=== PATIENT | female | born 1945 | race Caucasian/White ===

== ENCOUNTER 2017-11-10 00:15 | Inpatient (IN) ==
[2017-11-10] MEDS ORDERED: D5% in Water 1,000 ML IVC PRN (02:50)
[2017-11-10] MEDS ORDERED: Dextrose Gel 15 GM PO PRN ×2 (02:50)
[2017-11-10] MEDS ORDERED: *HR* Dextrose 50 % in Water (Syg) 50 ML SYRINGE IVP PRN (02:50)
[2017-11-10] MEDS ORDERED: Acetaminophen 325 MG TABLET PO PRN (02:51)
[2017-11-10] MEDS ORDERED: Naloxone 0.4 MG/ML INJ IVP PRN (02:51)
[2017-11-10] MEDS ORDERED: *HR* Morphine 2 MG/ML SYRINGE IVP PRN (02:51)
[2017-11-10] MEDS ORDERED: Insulin LISPRO 300 UNITS/3 ML VIAL SQ SCH (03:00)
--- NOTE | 2017-11-10 03:03 | Internal Med History&Physical ---
Date of Encounter: 11/10/17 Time of Encounter: 03:01 Assessment and Plan (1) Abdominal pain Current visit: Yes Status: Acute Secondary to perhaps gallbladder with pneumobilia but no white cell count of fever. She consulted IV Zosyn started IV fluids started. Qualifiers: Abdominal location: right upper quadrant Qualified Code(s): R10.11 - Right upper quadrant pain (2) Cholelithiasis Current visit: Yes Status: Acute Gen. surgery consulted Qualifiers: Cholecystitis presence: without cholecystitis Biliary obstruction: without biliary obstruction Qualified Code(s): K80.20 - Calculus of gallbladder without cholecystitis without obstruction (3) Pneumobilia Current visit: Yes Status: Acute Findings noted surgical consultation requested per request of general surgery IV Zosyn as started (4) Diabetes 1.5, managed as type 2 Current visit: Yes Status: Acute Accu-Chek every 6 sliding scale coverage Internal Medicine - H&P: HPI Chief complaint: abdominal pain Admitted From: Home Plans for Post Hospital Care: Home History of present illness: Ms. Olivo is a 72 year old female past medical history significant for diabetes hypertension dyslipidemia presented with right according abdominal pain is started after eating supper. A CT abdomen done in ER showed cholelithiasis with Pneumobilia. There is no fever O White cell count. Surgery was consulted who has requested to admit the patient to hospitalist service and start IV Zosyn. Pain is localized in general but occasionally radiates in a bandlike fashion to her back. No nausea vomiting no dysuria urgency frequency hematuria or hematochezia hematemesis melena chest pain and dyspnea palpitation. Past Med Surg Social Fam HX - Past Medical History Medical history: cancer, diabetes, hyperlipidemia, hypertension Psychiatric history: no psych history - Social History Smoking Status: Current every day smoker Packs per day: 0.5 Smokeless Tobacco Status: No Alcohol use: none Drug use: none - Family History Sister Living Status: Still Living Hx Family Cancer: Yes (breast ca) Mother Living Status: Hx Family Endocrine Disorder: Yes Internal Medicine - H&P: Meds Glimepiride 11/09/17 [History] Insulin ASPART 11/09/17 [History] Janumet Xr 100-1,000 mg Tablet 11/09/17 [History] Lisinopril 11/09/17 [History] Simvastatin 11/09/17 [History] 3 Allergy/AdvReac Type Severity Reaction Status Date / Time No Known Allergies Allergy Verified 07/25/15 11:15 All Systems PM: A 10-system review of systems was performed and is negative for pertinent findings except as documented above in the HPI. - Constitutional Constitutional: no chills, no fever(s), no night sweats - EENT Eyes: no change in vision, no discharge, no pain, no photophobia Ears: no ear discharge, no ear pain, no tinnitus Nose, mouth and throat: no dysphagia, no nasal discharge, no neck pain, no sore throat - Cardiovascular Cardiovascular ROS IM: no chest pain, no diaphoresis, no dyspnea, no lightheadedness, no palpitations, no syncope - Respiratory Respiratory: no cough, no dyspnea, no wheezing, no excessive phlegm production - Gastrointestinal Gastrointestinal: abdominal pain, no diarrhea, no hematemesis, no hematochezia, no melena, no nausea, no vomiting - Genitourinary Genitourinary: no change in urinary stream, no dysuria, no flank pain, no hematuria - Musculoskeletal Musculoskeletal ROS IM: no numbness, no tingling - Integumentary Integumentary IM: no rash, no unusual bruising - Neurological Neurological ROS: no confusion, no convulsions, no focal weakness, no numbness, no tingling, no tremor(s) - Hematologic/Lymphatic Hematologic/Lymphatic: no easy bruising - Head Head exam: Present: atraumatic, normocephalic - Eye Eye exam: Present: PERRL, conjuntiva pink, sclera anicteric Pupils: Present: PERRL - Neck Neck exam general surgery: Present: supple, trachea midline. Absent: lymphadenopathy - Respiratory Respiratory exam: Present: CTAB. Absent: accessory muscle use, rales, rhonchi, wheezes - Cardiovascular Cardiovascular exam: Present: RRR, +S1, +S2. Absent: diastolic murmur, gallop, rubs, systolic murmur - GI/Abdominal GI/Abdominal exam: Present: normal bowel sounds, soft, tenderness, no peritoneal signs. Absent: distended - Extremities Exam Extremities exam: Present: warm, radial pulses palpable and symmetrical. Absent : calf tenderness, cyanotic, pedal edema - Neurological Exam Neurological exam: Present: CN II-XII intact, oriented X3, no focal deficits. Absent: pronater drift, facial droop, speech deficit - Skin Skin exam: Present: dry, intact
[2017-11-10] MEDS: Insulin LISPRO 300 UNITS/3 ML VIAL SQ SCH ×4 (03:16→16:58)
[2017-11-10] MEDS: 0.9 % Sodium Chloride 1,000 ML IVC SCH ×2 (03:17→13:45)
[2017-11-10] MEDS: Ondansetron 4 MG/2 ML VIAL IVP SCH ×5 (03:18→20:00)
[2017-11-10 05:36] LABS: Basophils % 0.3 %; Eosinophils # 0.1 K/mcL (0.0-0.6); Eosinophils % 0.5 %; Hemoglobin 12.9 g/dL (11.5-15.4); Immature Granulocytes % 0.6 % (0-4); Lymphocytes # 1.7 K/mcL (0.6-4.6); Lymphocytes % 14.5 %; Mean Corpuscular HGB Conc 33.1 g/dL (31.6-35.5); Mean Corpuscular Hemoglobin 30.9 pg (28.0-33.3); Mean Corpuscular Volume 93.3 fL (83.0-100.0); Mean Platelet Volume 9.9 fL (9.4-12.4); Monocytes # 1.1 K/mcL (0.0-1.3); Monocytes % 9.6 %; Neutrophils # 8.6 K/mcL (1.6-8.9); Platelet Count 150 K/mcL (140-400); Red Blood Count 4.18 M/mcL (3.82-4.97); Red Cell Distribution Width 13.8 % (11.5-14.5); Segmented Neutrophils % 74.5 %
[2017-11-10 05:55] LABS: Alanine Aminotransferase 37 Units/L (0-55); Albumin 3.3 g/dL (3.5-5.0); Albumin/Globulin Ratio 0.9 (1.1-2.2); Alkaline Phosphatase 60 Units/L (38-126); Aspartate Amino Transferase 47 Units/L (5-34); BUN/Creatinine Ratio 33 (6-26); Bilirubin,Total 0.9 mg/dL (0.2-1.2); Blood Urea Nitrogen 27 mg/dL (7-20); Calcium 9.4 mg/dL (8.6-10.8); Carbon Dioxide 20 mEq/L (19-29); Chloride 104 mEq/L (98-109); Globulin 3.6 g/dL (2.4-3.5); Glucose 169 mg/dL (70-99); Osmolality,Calculated 291 (280-300); Potassium 4.1 mEq/L (3.5-4.5); Sodium 136 mEq/L (136-145); Total Protein 6.9 g/dL (6.0-8.3); eGFR For African Americans > 60 (> 60); eGFR For Non-African Americans > 60 (> 60)
[2017-11-10] MEDS: Piperacillin/Tazobactam 3.375 GM/200 ML BAG IVPB SCH ×2 (08:15→16:59)
--- NOTE | 2017-11-10 08:52 | General Surgery Consult Note ---
<Jesus Colin - Last Filed: 11/10/17 09:15> Date of Encounter: 11/10/17 Time of Encounter: 08:43 Assessment and Plan (1) Abdominal pain Current Visit: Yes Status: Acute - Most likely secondary to symptomatic cholelithiasis -Does not appear to be acute cholecystitis given afebrile, WBC 11.5, no reported nausea or vomiting - AST mildly elevated at 47, otherwise unremarkable labs - Abdominal CT in emergency department showed evidence of cholelithiasis with pneumobilia in no apparent cholecystitis -We will plan on laparoscopic cholecystectomy tomorrow - Clear liquid diet today, nothing by mouth at midnight - Coagulation studies pending - Agree with IV Zosyn and IV fluids Qualifiers: Abdominal location: right upper quadrant Qualified Code(s): R10.11 - Right upper quadrant pain (2) Cholelithiasis Current Visit: Yes Status: Acute As above for abdominal pain. Plan for laparoscopic cholecystectomy tomorrow Qualifiers: Cholecystitis presence: without cholecystitis Biliary obstruction: without biliary obstruction Qualified Code(s): K80.20 - Calculus of gallbladder without cholecystitis without obstruction (3) HTN (hypertension) Current Visit: Yes Status: Acute Well-controlled, further management per primary team Qualifiers: Hypertension type: essential hypertension Qualified Code(s): I10 - Essential (primary) hypertension (4) HLD (hyperlipidemia) Current Visit: Yes Status: Acute Qualifiers: Hyperlipidemia type: unspecified Qualified Code(s): E78.5 - Hyperlipidemia , unspecified (5) DVT prophylaxis Current Visit: Yes Status: Acute SCDs History of Present Illness Consult date: 11/10/17 Reason for consult: gallstones Requesting physician: Randy Wyatt History of present illness: Miss Olivo is a 72-year-old female with a past medical history of CAD, HLD, type 2 diabetes who presents to emergency department with a complaint of right upper quadrant abdominal pain since 6 PM last evening. She states that during the sudden onset sharp pain she was crocheting and had finished her evening meal approximately 1 hour previous. She had pork chops with cream of mushroom soup over top. She has had intermittent pain for the past couple of years however the symptoms did not perla and were significantly worse than previous. She has not noticed any exacerbating or relieving symptoms and does not associate onset of symptoms with any particular event. She has seen her primary care physician regarding this and was started on a antireflux medication but states that this did not help her pain last night. She denies any symptoms of nausea, vomiting and notes that her last bowel movement was last evening which was a little loose with some fecal incontinence however there is no evidence of blood in and the color was normal appearance. Abdominal surgeries include hysterectomy. During time of interview, patient is no longer experiencing symptoms of abdominal pain. Past Med Surg Social Fam HX - Past Medical History Medical history: cancer, diabetes, hyperlipidemia, hypertension Psychiatric history: no psych history - Social History Smoking Status: Current every day smoker Packs per day: 0.5 Smokeless Tobacco Status: No Alcohol use: none Drug use: none - Family History Sister Living Status: Still Living Hx Family Cancer: Yes (breast ca) Mother Living Status: Hx Family Endocrine Disorder: Yes Medications and Allergies Glimepiride [Amaryl] 4 mg PO BID 11/10/17 [History] Insulin DETEMIR [Levemir Flextouch] 22 unit SQ QPM 11/10/17 [History] Lisinopril-HCTZ 20-12.5 [Prinzide 20-12.5] 1 tab PO DAILY 11/10/17 [History] Simvastatin [Zocor] 40 mg PO HS 11/10/17 [History] Sitagliptin Phos/Metformin HCl [Janumet 50-1,000 mg Tablet] 1 tab PO BID [History] 3 Allergy/AdvReac Type Severity Reaction Status Date / Time No Known Allergies Allergy Verified 11/10/17 11:36 Review of Systems All systems PM: A 10-system review of systems was performed and is negative for pertinent findings except as documented above in the HPI. - Constitutional no anorexia, no chills, no fever(s) - Cardiovascular no chest pain, no dyspnea - Respiratory no dyspnea - Gastrointestinal as per HPI, abdominal pain, change in stool character, fecal incontinence, loose stools, no change in bowel habits, no constipation, no diarrhea, no dyspepsia, no heartburn, no hematemesis, no hematochezia, no melena, no nausea, no vomiting General Surgery Exam Initial Vital Signs Temp Pulse Resp BP Pulse Ox 97.9 F 85 14 109/70 94 11/10/17 03:30 11/10/17 03:30 11/10/17 03:30 11/10/17 03:30 11/10/17 03:30 - General physical appearance well developed, well nourished, no distress, no pain - Respiratory normal expansion, normal respiratory effort, clear to auscultation - Cardiovascular Cardiovascular exam: Present: RRR, no murmurs/rubs/gallops - Abdomen Abdomen general surgery: Present: bowel sounds present, soft, tender. Absent: tympanic, distended, organomegaly, masses, rebound Abdominal Tenderness: Present: epigastic, RUQ Exam Initial Vital Signs Temp Pulse Resp BP Pulse Ox 97.9 F 85 14 109/70 94 11/10/17 03:30 11/10/17 03:30 11/10/17 03:30 11/10/17 03:30 11/10/17 03:30 Results - Labs 11/10/17 04:20 11/10/17 04:20 Abnormal lab results WBC 11.5 K/mcL (4.3-11.1) H 11/10/17 04:20 BUN 27 mg/dL (7-20) H 11/10/17 04:20 BUN/Creatinine Ratio 33 (6-26) H 11/10/17 04:20 Glucose 169 mg/dL (70-99) H 11/10/17 04:20 POC Glucose 122 (58-89) H 11/10/17 08:04 AST 47 Units/L (5-34) H 11/10/17 04:20 Albumin 3.3 g/dL (3.5-5.0) L 11/10/17 04:20 Globulin 3.6 g/dL (2.4-3.5) H 11/10/17 04:20 Albumin/Globulin Ratio 0.9 (1.1-2.2) L 11/10/17 04:20 Diabetes panel 11/10/17 Range/Units 04:20 Sodium 136 (136-145) mEq/L Potassium 4.1 (3.5-4.5) mEq/L Chloride 104 (98-109) mEq/L Carbon Dioxide 20 (19-29) mEq/L BUN 27 H (7-20) mg/dL Creatinine 0.81 (0.57-1.11) mg/dL Glucose 169 H (70-99) mg/dL Calcium 9.4 (8.6-10.8) mg/dL AST 47 H (5-34) Units/L ALT 37 (0-55) Units/L Alkaline Phosphatase 60 (38-126) Units/L Albumin 3.3 L (3.5-5.0) g/dL Calcium panel 11/10/17 Range/Units 04:20 Calcium 9.4 (8.6-10.8) mg/dL Albumin 3.3 L (3.5-5.0) g/dL Pituitary panel 11/10/17 Range/Units 04:20 Sodium 136 (136-145) mEq/L Potassium 4.1 (3.5-4.5) mEq/L Chloride 104 (98-109) mEq/L Carbon Dioxide 20 (19-29) mEq/L BUN 27 H (7-20) mg/dL Creatinine 0.81 (0.57-1.11) mg/dL Glucose 169 H (70-99) mg/dL Calcium 9.4 (8.6-10.8) mg/dL Adrenal panel 11/10/17 Range/Units 04:20 Sodium 136 (136-145) mEq/L Potassium 4.1 (3.5-4.5) mEq/L Chloride 104 (98-109) mEq/L Carbon Dioxide 20 (19-29) mEq/L BUN 27 H (7-20) mg/dL Creatinine 0.81 (0.57-1.11) mg/dL Glucose 169 H (70-99) mg/dL Calcium 9.4 (8.6-10.8) mg/dL Total Bilirubin 0.9 D (0.2-1.2) mg/dL AST 47 H (5-34) Units/L ALT 37 (0-55) Units/L Alkaline Phosphatase 60 (38-126) Units/L Albumin 3.3 L (3.5-5.0) g/dL All other labs normal. Consult Discharge Plan - Plan Referrals: Ry Jay MD [Primary Care Provider] - <Tien Carmona - Last Filed: 11/12/17 08:02> Date of Encounter: 11/10/17 Review of Systems All systems PM: A 10-system review of systems was performed and is negative for pertinent findings except as documented above in the HPI. General Surgery Exam Initial Vital Signs Temp Pulse Resp BP Pulse Ox 97.9 F 85 14 109/70 94 11/10/17 03:30 11/10/17 03:30 11/10/17 03:30 11/10/17 03:30 11/10/17 03:30 Exam Initial Vital Signs Temp Pulse Resp BP Pulse Ox 97.9 F 85 14 109/70 94 11/10/17 03:30 11/10/17 03:30 11/10/17 03:30 11/10/17 03:30 11/10/17 03:30 Results - Labs 11/12/17 03:40 11/12/17 03:40 Abnormal lab results WBC 11.6 K/mcL (4.3-11.1) H D 11/12/17 03:40 RBC 3.66 M/mcL (3.82-4.97) L 11/12/17 03:40 Hgb 11.4 g/dL (11.5-15.4) L 11/12/17 03:40 Hct 33.7 % (35.3-44.9) L 11/12/17 03:40 Plt Count 124 K/mcL (140-400) L 11/12/17 03:40 MPV 9.3 fL (9.4-12.4) L 11/12/17 03:40 Neutrophils # 9.3 K/mcL (1.6-8.9) H 11/12/17 03:40 Glucose 195 mg/dL (70-99) H 11/12/17 03:40 POC Glucose 194 (58-89) H 11/12/17 07:37 Calcium 8.4 mg/dL (8.6-10.8) L 11/12/17 03:40 AST 36 Units/L (5-34) H 11/12/17 03:40 Albumin 2.8 g/dL (3.5-5.0) L 11/12/17 03:40 Albumin/Globulin Ratio 0.8 (1.1-2.2) L 11/12/17 03:40 Diabetes panel 11/12/17 Range/Units 03:40 Sodium 139 (136-145) mEq/L Potassium 3.9 (3.5-4.5) mEq/L Chloride 106 (98-109) mEq/L Carbon Dioxide 22 (19-29) mEq/L BUN 16 (7-20) mg/dL Creatinine 0.82 (0.57-1.11) mg/dL Glucose 195 H (70-99) mg/dL Calcium 8.4 L (8.6-10.8) mg/dL AST 36 H (5-34) Units/L ALT 36 (0-55) Units/L Alkaline Phosphatase 42 (38-126) Units/L Albumin 2.8 L (3.5-5.0) g/dL Calcium panel 11/12/17 Range/Units 03:40 Calcium 8.4 L (8.6-10.8) mg/dL Albumin 2.8 L (3.5-5.0) g/dL Pituitary panel 11/12/17 Range/Units 03:40 Sodium 139 (136-145) mEq/L Potassium 3.9 (3.5-4.5) mEq/L Chloride 106 (98-109) mEq/L Carbon Dioxide 22 (19-29) mEq/L BUN 16 (7-20) mg/dL Creatinine 0.82 (0.57-1.11) mg/dL Glucose 195 H (70-99) mg/dL Calcium 8.4 L (8.6-10.8) mg/dL Adrenal panel 11/12/17 Range/Units 03:40 Sodium 139 (136-145) mEq/L Potassium 3.9 (3.5-4.5) mEq/L Chloride 106 (98-109) mEq/L Carbon Dioxide 22 (19-29) mEq/L BUN 16 (7-20) mg/dL Creatinine 0.82 (0.57-1.11) mg/dL Glucose 195 H (70-99) mg/dL Calcium 8.4 L (8.6-10.8) mg/dL Total Bilirubin 0.9 (0.2-1.2) mg/dL AST 36 H (5-34) Units/L ALT 36 (0-55) Units/L Alkaline Phosphatase 42 (38-126) Units/L Albumin 2.8 L (3.5-5.0) g/dL All other labs normal. - Attending Attestation I examined this patient and my medical decision-making was reviewed with the Resident Physician. I agree with the documented findings, disposition and treatment plan as described except to the extent set forth below. Review the above assessment and evaluation with him resident as mentioned above. Noted history of some epigastric right upper quadrant pain but currently patient has no pain. No tenderness to palpation on current exam. Noted mild leukocytosis but CT scan shows air in the gallbladder and pneumobilia. Agree with IV antibiotics and IV fluids. After this inflammation had a chance to decrease will consider plan for a laparoscopic cholecystectomy during this admission.
[2017-11-10 10:02] LABS: INR 1.1; Prothrombin Time 11.3 Seconds (9.4-12.1)
[2017-11-10 10:05] LABS: Activated Partial Thrombo Time 27.5 Seconds (26.0-36.0)
--- NOTE | 2017-11-10 15:11 | Internal Med Progress Note ---
Date of Encounter: 11/10/17 Time of Encounter: 09:00 - Assessment and plan (1) Abdominal pain Current Visit: Yes Status: Acute Assessment and plan: Probably due to symptomatic cholelithiasis. Surgical consult on case. Plan for surgery tomorrow Qualifiers: Abdominal location: right upper quadrant Qualified Code(s): R10.11 - Right upper quadrant pain (2) Cholelithiasis Current Visit: Yes Status: Acute Assessment and plan: Management as above. Continue Zosyn and IV fluid. Qualifiers: Cholecystitis presence: without cholecystitis Biliary obstruction: without biliary obstruction Qualified Code(s): K80.20 - Calculus of gallbladder without cholecystitis without obstruction (3) Pneumobilia Current Visit: Yes Status: Acute Assessment and plan: Suspected cholelithiasis versus cholecystitis. Continue Zosyn and IV fluid. Surgical consult on case and plan for surgery tomorrow (4) Diabetes 1.5, managed as type 2 Current Visit: Yes Status: Acute Assessment and plan: Place patient on sliding scale coverage (5) HTN (hypertension) Current Visit: Yes Status: Acute Assessment and plan: We will continue home medications Qualifiers: Hypertension type: essential hypertension Qualified Code(s): I10 - Essential (primary) hypertension (6) DVT prophylaxis Current Visit: Yes Status: Acute Assessment and plan: EPCD at this point, may start heparin after surgery. - Time Spent With Patient 25 - 35 minutes - Subjective Interval history: Patient was seen and examined. Still complaining abdominal pain. No fever. Denies nausea or vomiting. Denies diarrhea. Vitals are stable. Surgical consult appreciated, plan for surgery tomorrow. - Constitutional Vitals: Temp Pulse Resp BP Pulse Ox 98.6 F 88 16 131/81 92 11/10/17 14:54 11/10/17 14:54 11/10/17 14:54 11/10/17 14:54 11/10/17 14:54 General appearance: Present: A&O X 3, no acute distress, answers questions appropriately - Head Head exam: Present: atraumatic, normocephalic - Eye Eye exam: Present: PERRL, conjuntiva pink, sclera anicteric Pupils: Present: PERRL - Neck Neck exam general surgery: Present: supple, trachea midline. Absent: lymphadenopathy - Respiratory Respiratory exam: Present: CTAB. Absent: accessory muscle use, rales, rhonchi, wheezes - Cardiovascular Cardiovascular exam: Present: RRR, +S1, +S2. Absent: diastolic murmur, gallop, rubs, systolic murmur - GI/Abdominal GI/Abdominal exam: Present: normal bowel sounds, soft, tenderness (On RUQ, without rebound or guarding), no peritoneal signs. Absent: distended - Extremities Exam Extremities exam: Present: warm, radial pulses palpable and symmetrical. Absent : calf tenderness, cyanotic, pedal edema - Neurological Exam Neurological exam: Present: CN II-XII intact, oriented X3, no focal deficits. Absent: pronater drift, facial droop, speech deficit - Skin Skin exam: Present: dry, intact Internal Medicine: Result - Labs CBC & Chem 7: 11/10/17 04:20 11/10/17 04:20 Labs: Short CBC 11/10/17 Range/Units 04:20 WBC 11.5 H (4.3-11.1) K/mcL Hgb 12.9 (11.5-15.4) g/dL Hct 39.0 (35.3-44.9) % Plt Count 150 (140-400) K/mcL Neutrophils # 8.6 (1.6-8.9) K/mcL BMP 11/10/17 04:20 Sodium 136 Potassium 4.1 Chloride 104 Carbon Dioxide 20 BUN 27 H Creatinine 0.81 Glucose 169 H Calcium 9.4 Liver Function 11/10/17 Range/Units 04:20 Total Bilirubin 0.9 D (0.2-1.2) mg/dL AST 47 H (5-34) Units/L ALT 37 (0-55) Units/L Alkaline Phosphatase 60 (38-126) Units/L Albumin 3.3 L (3.5-5.0) g/dL - ABG Interpretation ABG results: PT/INR, D-dimer PT 11.3 Seconds (9.4-12.1) 11/10/17 09:23 Consult Discharge Plan - Plan Referrals: Ry Jay MD [Primary Care Provider] -
--- NOTE | 2017-11-10 20:44 | Anesthesia Evaluation PreOp ---
Date of Encounter: 11/10/17 Time of Encounter: 20:45 - Past History Planned Operation: Lap Gale Cardiac History: HTN (maintained on Lisinopril), Hyperlipidemia (maintained on Simvastatin) Pulmonary History: Smoker (<1ppd x 50+yrs) SENIOR SYSTEMS ARCHITECT History: Denies Any Significant HX Other Medical History: Diabetes Type II (maintained on Janumet, Glimepiride, Insulin), Other (Breast Ca s/p L-breast mastectomy, Skin Ca/BAsal Cell Ca - face , Hyster) Anesthesia History: Past Anesthesia Alcohol Use: none Drug use: none Medications and Allergies Glimepiride [Amaryl] 4 mg PO BID 11/10/17 [History] Insulin DETEMIR [Levemir Flextouch] 22 unit SQ QPM 11/10/17 [History] Lisinopril-HCTZ 20-12.5 [Prinzide 20-12.5] 1 tab PO DAILY 11/10/17 [History] Simvastatin [Zocor] 40 mg PO HS 11/10/17 [History] Sitagliptin Phos/Metformin HCl [Janumet 50-1,000 mg Tablet] 1 tab PO BID [History] 3 Allergy/AdvReac Type Severity Reaction Status Date / Time No Known Allergies Allergy Verified 11/10/17 11:36 - Meds/Allergy Pre-op Review Medications Reviewed: Yes Allergies Reviewed: Yes Beta Blockers on Current Med List: No Anesthesia Results - Labs 11/10/17 04:20 11/10/17 04:20 Laboratory Results - Imaging EKG: image reviewed Anesthesia Exam Vital Signs Temp Pulse Resp BP Pulse Ox 11/10/17 19:30 99.0 F 85 14 110/68 95 11/10/17 14:54 98.6 F 88 16 131/81 92 11/10/17 10:37 99.4 F 91 16 112/70 92 11/10/17 06:38 98.3 F 86 16 126/64 92 11/10/17 03:30 97.9 F 85 14 109/70 94 Intake and Output 11/10/17 11/10/17 11/10/17 07:59 15:59 23:59 Intake Total 0 / 0 2019 0 / 0 Output Total 0 / 0 850 / 850 450 / 450 Balance 0 / 0 1170 / 1170 -450 / -450 Intake: IV Fluids 1200 / 1200 0.9 % Sodium Chloride 1,000 ML 1000 / 1000 @ 100 mls/hr IVC .Q10H FRANCIA Rx#: [id number] Zosyn Premix 3.375 GM/200 ML 3. 200 / 200 375 gm In 200 ml @ 50 mls/hr IVPB Q8HR FRANCIA Rx#:[id number] Oral 0 / 0 820 / 820 0 / 0 Output: Urine 0 / 0 850 / 850 450 / 450 Other: Meal Clear # Bowel Movements 0 0 Weight 56.472 kg Blood Glucose* 164 87 168 Patient Weight 11/10/17 23:59 Weight 56.472 kg Weight: 125# - HEENT Pupil (Motor): Pupils equal, EOMI Mallampati: II Teeth: Edentulous, Poor dentition Oral Opening: Greater than 3 - SENIOR SYSTEMS ARCHITECT LOC: Oriented SENIOR SYSTEMS ARCHITECT Motor: Normal RUE, Normal LUE, Normal RLE, Normal LLE, Normal Face SENIOR SYSTEMS ARCHITECT Sensory: Normal: RUE, LUE, RLE, LLE, Face - Cardiac Rhythm: Regular Murmur: None - Pulmonary Breath Sounds: bilateral Clear Respiratory Effort: Symmetrical Anesthesia Assess/Plan ASA Score: 3 (DM, HTN, Chol, Smoker, Pneumobilia) Modified Freeman Scale for Level of Consciousness: Cooperative, oriented, and tranquil Anesthetic Plan: General Monitoring Plan: Standard Monitors Recovery Plan: PACU Anes Supervising Prov Stmt: Pt seen/evaluated, R&B Discussed, questions answered and consent obtained. Syd White MD
[2017-11-11] MEDS: Insulin LISPRO 300 UNITS/3 ML VIAL SQ SCH ×5 (00:05→23:31)
[2017-11-11] MEDS: Ondansetron 4 MG/2 ML VIAL IVP SCH ×5 (00:07→19:58)
[2017-11-11] MEDS ORDERED: Piperacillin/Tazobactam 3.375 GM/200 ML BAG IVPB SCH ×2 (02:00→10:00)
[2017-11-11 03:44] LABS: Basophils % 0.4 %; Eosinophils # 0.1 K/mcL (0.0-0.6); Eosinophils % 2.3 %; Hemoglobin 11.5 g/dL (11.5-15.4); Immature Granulocytes % 0.6 % (0-4); Lymphocytes # 1.8 K/mcL (0.6-4.6); Lymphocytes % 35.2 %; Mean Corpuscular HGB Conc 32.9 g/dL (31.6-35.5); Mean Corpuscular Hemoglobin 30.4 pg (28.0-33.3); Mean Corpuscular Volume 92.6 fL (83.0-100.0); Mean Platelet Volume 9.3 fL (9.4-12.4); Monocytes # 0.6 K/mcL (0.0-1.3); Monocytes % 12.5 %; Neutrophils # 2.5 K/mcL (1.6-8.9); Platelet Count 132 K/mcL (140-400); Red Blood Count 3.78 M/mcL (3.82-4.97); Red Cell Distribution Width 13.9 % (11.5-14.5)
[2017-11-11 03:55] LABS: BUN/Creatinine Ratio 18 (6-26); Calcium 8.6 mg/dL (8.6-10.8); Carbon Dioxide 25 mEq/L (19-29); Chloride 110 mEq/L (98-109); Glucose 105 mg/dL (70-99); Osmolality,Calculated 294 (280-300); Potassium 3.9 mEq/L (3.5-4.5); Sodium 142 mEq/L (136-145); eGFR For African Americans > 60 (> 60); eGFR For Non-African Americans > 60 (> 60)
[2017-11-11 04:01] LABS: Blood Urea Nitrogen 13 mg/dL (7-20)
[2017-11-11] MEDS ORDERED: Lisinopril-HCTZ 20-12.5mg TABLET PO SCH (09:00)
--- NOTE | 2017-11-11 09:22 | Internal Med Progress Note ---
Date of Encounter: 11/11/17 Time of Encounter: 09:20 - Assessment and plan (1) Cholelithiasis Current Visit: Yes Status: Acute Assessment and plan: Patient admitted with abdominal pain, CT abdomen with cholelithiasis and pneumobilia, no e/o- cholecystitis. Surgery consulted, plan for laparoscopic cholecystectomy for possible symptomatic gallstones. Continue bowel rest, IV hydration, supportive care with IV antiemetics and pain control with PRN IV Morphine. Continue IV Zosyn for now. Qualifiers: Cholelithiasis location: gallbladder Cholecystitis presence: without cholecystitis Biliary obstruction: without biliary obstruction Qualified Code(s): K80.20 - Calculus of gallbladder without cholecystitis without obstruction (2) Diabetes mellitus Current Visit: Yes Status: Chronic Assessment and plan: Blood sugars noted to be well-controlled. Continue Accucheck blood glucose monitoring with sliding scale insulin as needed. Qualifiers: Diabetes mellitus type: type 2 Diabetes mellitus complication status: with unspecified complications Diabetes mellitus terminal worker insulin use: without terminal worker use Qualified Code(s): E11.8 - Type 2 diabetes mellitus with unspecified complications (3) HTN (hypertension) Current Visit: Yes Status: Chronic Assessment and plan: BP well-controlled; continue home meds; Qualifiers: Hypertension type: essential hypertension Qualified Code(s): I10 - Essential (primary) hypertension (4) HLD (hyperlipidemia) Current Visit: Yes Status: Chronic Qualifiers: Hyperlipidemia type: unspecified Qualified Code(s): E78.5 - Hyperlipidemia , unspecified - Subjective Interval history: Reports feeling better; improving nausea and abdominal pain; awaiting surgery today; - Constitutional Vitals: Temp Pulse Resp BP Pulse Ox 99 F 91 16 146/76 95 11/11/17 07:27 11/11/17 07:27 11/11/17 07:27 11/11/17 07:27 11/11/17 07:27 General appearance: Present: A&O X 3, answers questions appropriately - Respiratory Respiratory exam: Present: CTAB. Absent: accessory muscle use, rales, rhonchi, wheezes - Cardiovascular Cardiovascular exam: Present: RRR, +S1, +S2. Absent: diastolic murmur, gallop, rubs, systolic murmur - GI/Abdominal GI/Abdominal exam: Present: normal bowel sounds, soft, no peritoneal signs. Absent: distended, tenderness - Extremities Exam Extremities exam: Present: full ROM, warm, radial pulses palpable and symmetrical. Absent: calf tenderness, cyanotic, pedal edema Internal Medicine: Result - Labs CBC & Chem 7: 11/11/17 03:35 11/11/17 03:35 Labs: Short CBC 11/11/17 Range/Units 03:35 WBC 5.1 D (4.3-11.1) K/mcL Hgb 11.5 (11.5-15.4) g/dL Hct 35.0 L (35.3-44.9) % Plt Count 132 L (140-400) K/mcL Neutrophils # 2.5 (1.6-8.9) K/mcL BMP 11/11/17 03:35 Sodium 142 Potassium 3.9 Chloride 110 H Carbon Dioxide 25 BUN 13 D Creatinine 0.74 Glucose 105 H Calcium 8.6 - ABG Interpretation ABG results: PT/INR, D-dimer PT 11.3 Seconds (9.4-12.1) 11/10/17 09:23 - VTE Documentation of Mechanical Device: Intermittent pneumatic compression device Consult Discharge Plan - Plan Referrals: Ry Jay MD [Primary Care Provider] -
[2017-11-11] MEDS ORDERED: Ondansetron 4 MG/2 ML VIAL ONE (14:08)
[2017-11-11] MEDS ORDERED: Lidocaine -MPF 2% 2 ML VIAL ONE (14:08)
[2017-11-11] MEDS ORDERED: *HR* Succinylcholine 200 MG/10 ML VIAL IVP ONE (14:08)
[2017-11-11] MEDS ORDERED: *HR* Propofol 200 MG/20 ML VIAL IVP ONE (14:09)
[2017-11-11] MEDS ORDERED: *HR* FentaNYL (PF) 100 MCG/2 ML VIAL ONE (14:09)
[2017-11-11] MEDS ORDERED: *HR* Vasopressin 20 UNIT/ML VIAL ONE (14:17)
[2017-11-11] MEDS ORDERED: EPHEDrine 50 MG/ML VIAL ONE (14:45)
[2017-11-11] MEDS ORDERED: *HR* HYDROmorphone (PF) 1 MG/ML SYRINGE IVP PRN ×2 (15:06→17:58)
[2017-11-11] MEDS ORDERED: *HR* Promethazine 25 MG/ML VIAL IVP PRN (15:06)
[2017-11-11] MEDS ORDERED: *HR* Labetalol 20 MG/4 ML SYRINGE IVP PRN (15:06)
[2017-11-11] MEDS ORDERED: Esmolol 100 MG/10 ML VIAL IVP ONE (15:10)
[2017-11-11] MEDS ORDERED: *HR* Labetalol 100 MG/20 ML MDV ONE (15:13)
[2017-11-11] MEDS ORDERED: *HR* Morphine 10 MG/ML VIAL ONE (15:15)
[2017-11-11] MEDS ORDERED: Ketorolac 30 MG/ML VIAL ONE (16:08)
--- NOTE | 2017-11-11 16:29 | Operative Note ---
Date of procedure: 11/11/17 Pre-op diagnosis: Biliary colic/symptomatic gallstones Post-op diagnosis: other (Acute cholecystitis) Procedure: Subtotal Cholecystectomy Implants: Diony drain 19FR Anesthesia: MYA Surgeon: Tien Carmona Check Airman: Federica Russ Check Airman Other: NIRMAL Pérez Estimated blood loss (cc): 50 Specimen: gallbladder wall, gallstones Disposition: PACU Procedure in Detail: Date of surgery: 11/11/17 After properly identifying the patient, the patient was brought to the operating room and placed in a supine position. After proper IV sedation was achieved followed by general endotracheal intubation, the patient's abdomen was prepped and draped in a normal sterile fashion. A timeout was performed noting the patient's name and type of procedure to be performed. A supraumbilical incision with an 11 blade scalpel was made down to the level of the rectus fascia. Once the rectus fascia was incised and the abdomen was entered a 12 mm port was placed to the incision and the abdomen was insufflated with carbon dioxide. A laparoscopic camera was placed the port which showed no injury to the intra-abdominal organs upon entry. A subxiphoid 5 mm port in the right subcostal margin 5 mm port were then placed under direct camera visualization. The patient was placed in a reverse Trendelenburg position and the right upper quadrant was examined. There were dense until adhesions up against the dome of the gallbladder which were carefully taken down with use of the laparoscopic LigaSure. This allowed for visualization of portion of the dome of the gallbladder which appeared to be hyperemic and inflamed, consistent with acute cholecystitis or possible acute on chronic cholecystitis. The stomach was also densely adherent to the midportion/dome of the gallbladder. Blunt dissection a utilization of laparoscopic scissors were attempted to help dissect the stomach off the gallbladder at this level with minimal success. States it was maintained with Bovie cauterization. Further medial and lateral dissection along the gallbladder was taken with Bovie cauterization. Right upper quadrant was also irrigated with normal saline solution given his face. Due to the in entrapment of the of the infundibulum and cystic duct this inflammatory process including a portion of the stomach the decision was made to perform a subtotal cholecystectomy. Bovie cauterization was used to open the gallbladder at the midportion of the dome. This was carried from medial to lateral with minimal spillage of bilious material. There was a large gallstone present which was removed from the lumen of the gallbladder. The distal portion of dome of the gallbladder was then dissected off the gallbladder fossa with Bovie cauterization will Bovie cauterization was used to maintain hemostasis. Both the gallstone and the wall or cavity of the gallbladder were removed from the abdomen via an Endobag. Reinspection demonstrated maintenance of hemostasis. Because of the concern about problems with bleeding and possible injury to the common bile duct the decision was made to further dissect briefly the visualized proximal portion of the gallbladder away from the cystic duct and away from the adherent portion of the stomach to the gallbladder wall. This allowed for possible collapse of the wall towards the lumen to help obliterate this space during healing. A 19-Serbian Diony drain was placed in the abdomen and positioned at the level of the gallbladder fossa. This was secured in place with a 2-0 nylon suture. The right upper quadrant was irrigated with normal saline solution until the effluent was clear. All ports were then removed from the abdomen after the abdomen was desufflated. The rectus fascia for this umbilical incision was reapproximated with a figure- of-eight 0 Vicryl suture. The subcutaneous tissue was reapproximated with interrupted 3-0 Vicryl sutures and the epidermal and dermal layers for the remaining incisions were closed with 4-0 Monocryl sutures. Needle, sponge, and instrument counts were correct 2 and the incisions were covered with Steri- Strips and Band-Aids. The patient was aroused from IV sedation, extubated in the operating room without complication, and transported to the recovery room in stable condition.
--- NOTE | 2017-11-11 17:25 | Anesthesia Evaluation Post Op ---
Date of Encounter: 11/11/17 Time of Encounter: 17:24 - Vital Signs Vital Signs: Selected Entries 11/11/17 17:16 Temperature 98.1 F Pulse Rate 101 Respiratory Rate 17 Blood Pressure 157/90 O2 Sat by Pulse Oximetry 92 Oxygen Flow Rate (LPM) 2 - Lungs Lungs: Clear Ascult./Percussion - Airway Airway: Non-obstructed - Cardiovascular Regular Rate - Mental Status Mental Status: Alert & Oriented, Answers Appropriately - Pain Pain Scale: 0 Pain Scale used: Numeric (1 - 10) - Nausea Vomiting Nausea Vomiting: Not Present - Hydration Hydration: Ice chips, Has not voided - Discharge PostOp Status: Transfer Patient to floor
[2017-11-11] MEDS ORDERED: *HR* Dextrose 50 % in Water (Syg) 50 ML SYRINGE IVP PRN (17:58)
[2017-11-11] MEDS ORDERED: Dextrose Gel 15 GM PO PRN ×2 (17:58)
[2017-11-11] MEDS ORDERED: D5% in Water 1,000 ML IVC PRN (17:58)
[2017-11-11] MEDS ORDERED: Naloxone 0.4 MG/ML INJ IVP PRN (17:58)
[2017-11-11] MEDS: Piperacillin/Tazobactam 3.375 GM/200 ML BAG IVPB SCH (18:40)
[2017-11-12] MEDS: Ondansetron 4 MG/2 ML VIAL IVP SCH ×3 (00:04→08:21)
[2017-11-12] MEDS: Piperacillin/Tazobactam 3.375 GM/200 ML BAG IVPB SCH ×3 (02:14→17:35)
[2017-11-12] MEDS: Acetaminophen 325 MG TABLET PO PRN ×2 (03:49→12:09)
[2017-11-12 03:55] LABS: Basophils % 0.2 %; Hematocrit 33.7 % (35.3-44.9); Hemoglobin 11.4 g/dL (11.5-15.4); Immature Granulocytes % 0.3 % (0-4); Lymphocytes # 1.1 K/mcL (0.6-4.6); Lymphocytes % 9.7 %; Mean Corpuscular HGB Conc 33.8 g/dL (31.6-35.5); Mean Corpuscular Hemoglobin 31.1 pg (28.0-33.3); Mean Corpuscular Volume 92.1 fL (83.0-100.0); Mean Platelet Volume 9.3 fL (9.4-12.4); Monocytes # 1.2 K/mcL (0.0-1.3); Monocytes % 9.9 %; Neutrophils # 9.3 K/mcL (1.6-8.9); Platelet Count 124 K/mcL (140-400); Red Blood Count 3.66 M/mcL (3.82-4.97); Red Cell Distribution Width 13.7 % (11.5-14.5); Segmented Neutrophils % 79.9 %
[2017-11-12 04:12] LABS: Alanine Aminotransferase 36 Units/L (0-55); Albumin 2.8 g/dL (3.5-5.0); Albumin/Globulin Ratio 0.8 (1.1-2.2); Alkaline Phosphatase 42 Units/L (38-126); Aspartate Amino Transferase 36 Units/L (5-34); BUN/Creatinine Ratio 20 (6-26); Bilirubin,Direct 0.5 mg/dL (0.0-0.5); Bilirubin,Indirect 0.4 mg/dL (0.0-1.2); Bilirubin,Total 0.9 mg/dL (0.2-1.2); Blood Urea Nitrogen 16 mg/dL (7-20); Calcium 8.4 mg/dL (8.6-10.8); Carbon Dioxide 22 mEq/L (19-29); Chloride 106 mEq/L (98-109); Globulin 3.4 g/dL (2.4-3.5); Glucose 195 mg/dL (70-99); Osmolality,Calculated 295 (280-300); Potassium 3.9 mEq/L (3.5-4.5); Sodium 139 mEq/L (136-145); Total Protein 6.2 g/dL (6.0-8.3); eGFR For African Americans > 60 (> 60); eGFR For Non-African Americans > 60 (> 60)
[2017-11-12] MEDS: Insulin LISPRO 300 UNITS/3 ML VIAL SQ SCH ×3 (07:40→17:36)
[2017-11-12] MEDS: Lisinopril-HCTZ 20-12.5mg TABLET PO SCH (08:21)
[2017-11-12] MEDS ORDERED: Ondansetron 4 MG/2 ML VIAL IVP PRN (08:49)
--- NOTE | 2017-11-12 10:27 | General Surgery Progress Note ---
<Jesus Colin - Last Filed: 11/12/17 10:24> Date of Encounter: 11/12/17 Time of Encounter: 09:00 - Assessment and Plan (1) Abdominal pain Current Visit: Yes Status: Inactive - Most likely secondary to symptomatic cholelithiasis - Abdominal CT in emergency department showed evidence of cholelithiasis with pneumobilia in no apparent cholecystitis -Status post partial laparoscopic cholecystectomy postoperative day #1 - Mild leukocytosis of 11.6, temperature of 100.0 overnight, heart rate of 111 overnight. Currently afebrile with normal heart rate. Most likely reactive in nature - Tolerated surgery well without complications. - Wound drain of 110 mL this morning, previously 150 - Agree with IV Zosyn and IV fluids - Continue to monitor for decreased drain output Qualifiers: Abdominal location: right upper quadrant Qualified Code(s): R10.11 - Right upper quadrant pain (2) Cholelithiasis Current Visit: Yes Status: Inactive As above for abdominal pain. POD #1 for partial laparoscopic cholecystectomy Qualifiers: Cholecystitis presence: without cholecystitis Biliary obstruction: without biliary obstruction Qualified Code(s): K80.20 - Calculus of gallbladder without cholecystitis without obstruction (3) HTN (hypertension) Current Visit: Yes Status: Chronic Well-controlled, further management per primary team Qualifiers: Hypertension type: essential hypertension Qualified Code(s): I10 - Essential (primary) hypertension (4) HLD (hyperlipidemia) Current Visit: Yes Status: Chronic Qualifiers: Hyperlipidemia type: unspecified Qualified Code(s): E78.5 - Hyperlipidemia , unspecified (5) DVT prophylaxis Current Visit: Yes Status: Acute SCDs Subjective Patient reports: no new complaints, feels better, pain is less, tolerating liquids well, flatus, no bowel movement Narrative: Patient seen and examined at bedside this morning. She reports improvement of her abdominal pain, and states that she is only experiencing some mild soreness. She denies any symptoms of nausea, vomiting. She tolerated her clear liquid diet this morning well without any complaints. She is passing gas but reports no bowel movements yet. She is using incentive spirometer approximately once per hour. Objective Vital Signs - Last 8 Hours Temp Pulse Resp BP Pulse Ox 11/12/17 07:54 98.1 F 81 16 107/66 96 11/12/17 05:31 98.7 F 99 15 113/62 91 11/12/17 03:39 100.0 F H 111 15 110/58 91 Intake and Output 11/11/17 11/12/17 11/12/17 23:59 07:59 15:59 Intake Total 0 / 0 400 / 400 360 / 360 Output Total 600 / 600 310 / 310 Balance -600 / -600 90 / 90 360 / 360 Intake: IV Fluids 400 / 400 Zosyn Premix 3.375 GM/200 ML 3. 400 / 400 375 gm In 200 ml @ 50 mls/hr IVPB Q8H [facility] Rx#:[id number] Oral 0 / 0 0 / 0 360 / 360 Output: Urine 400 / 400 200 / 200 Estimated Blood Loss 50 / 50 Wound Drainage 150 / 150 110 / 110 Right Abdomen 150 / 150 110 / 110 Other: Meal Breakfast Weight 59.6 kg Blood Glucose* 161 194 Patient Weight 11/12/17 23:59 Weight 59.6 kg - General physical appearance well developed, well nourished, no distress - Respiratory normal expansion, normal respiratory effort, clear to auscultation - Cardiovascular Cardiovascular exam: Present: RRR, no murmurs/rubs/gallops - Abdomen Abdomen: Present: bowel sounds present, soft, non tender - Incision Incision: Present: clean and dry, intact - Labs 11/12/17 03:40 11/12/17 03:40 Diabetes panel 11/12/17 Range/Units 03:40 Sodium 139 (136-145) mEq/L Potassium 3.9 (3.5-4.5) mEq/L Chloride 106 (98-109) mEq/L Carbon Dioxide 22 (19-29) mEq/L BUN 16 (7-20) mg/dL Creatinine 0.82 (0.57-1.11) mg/dL Glucose 195 H (70-99) mg/dL Calcium 8.4 L (8.6-10.8) mg/dL AST 36 H (5-34) Units/L ALT 36 (0-55) Units/L Alkaline Phosphatase 42 (38-126) Units/L Albumin 2.8 L (3.5-5.0) g/dL Calcium panel 11/12/17 Range/Units 03:40 Calcium 8.4 L (8.6-10.8) mg/dL Albumin 2.8 L (3.5-5.0) g/dL Pituitary panel 11/12/17 Range/Units 03:40 Sodium 139 (136-145) mEq/L Potassium 3.9 (3.5-4.5) mEq/L Chloride 106 (98-109) mEq/L Carbon Dioxide 22 (19-29) mEq/L BUN 16 (7-20) mg/dL Creatinine 0.82 (0.57-1.11) mg/dL Glucose 195 H (70-99) mg/dL Calcium 8.4 L (8.6-10.8) mg/dL Adrenal panel 11/12/17 Range/Units 03:40 Sodium 139 (136-145) mEq/L Potassium 3.9 (3.5-4.5) mEq/L Chloride 106 (98-109) mEq/L Carbon Dioxide 22 (19-29) mEq/L BUN 16 (7-20) mg/dL Creatinine 0.82 (0.57-1.11) mg/dL Glucose 195 H (70-99) mg/dL Calcium 8.4 L (8.6-10.8) mg/dL Total Bilirubin 0.9 (0.2-1.2) mg/dL AST 36 H (5-34) Units/L ALT 36 (0-55) Units/L Alkaline Phosphatase 42 (38-126) Units/L Albumin 2.8 L (3.5-5.0) g/dL - VTE Documentation of Mechanical Device: Graduated compression elastic hosiery Consult Discharge Plan - Plan Referrals: Ry Jay MD [Primary Care Provider] - <Tien Carmona - Last Filed: 11/13/17 07:17> Date of Encounter: 11/12/17 Objective Vital Signs - Last 8 Hours Temp Pulse Resp BP Pulse Ox 11/13/17 04:16 99.2 F 102 15 149/82 92 11/13/17 00:46 134/68 11/12/17 23:22 99.4 F 113 16 110/66 93 Intake and Output 11/12/17 11/12/17 11/13/17 15:59 23:59 07:59 Intake Total 1120 / 1120 560 / 560 200 / 200 Output Total 890 / 890 845 / 845 250 / 250 Balance 230 / 230 -285 / -285 -50 / -50 Intake: IV Fluids 200 / 200 200 / 200 200 / 200 Zosyn Premix 3.375 GM/200 ML 3. 200 / 200 200 / 200 200 / 200 375 gm In 200 ml @ 50 mls/hr IVPB Q8H [facility] Rx#:[id number] Oral 920 / 920 360 / 360 0 / 0 Output: Urine 850 / 850 800 / 800 250 / 250 Wound Drainage 40 / 40 45 / 45 Right Abdomen 40 / 40 45 / 45 Other: Meal Breakfast clears Weight 60.9 kg Blood Glucose* 199 231 Patient Weight 11/13/17 23:59 Weight 60.9 kg - Labs 11/12/17 03:40 11/12/17 03:40 - Attending Attestation I examined this patient and my medical decision-making was reviewed with the Resident Physician. I agree with the documented findings, disposition and treatment plan as described except to the extent set forth below. I reviewed the above assessment and evaluation and agree with the above plan. Continue with monitoring of the BISI drain output. Continue with clears and IV antibiotics. Will consider CT scan of the abdomen and pelvis within the next 24 hours to see whether or not there is any fluid buildup or fluid collection.
--- NOTE | 2017-11-12 14:27 | Internal Med Progress Note ---
Date of Encounter: 11/12/17 Time of Encounter: 08:40 - Assessment and plan (1) Cholelithiasis Current Visit: Yes Status: Acute Assessment and plan: Patient admitted with abdominal pain, CT abdomen with cholelithiasis and pneumobilia, no e/o- cholecystitis. Surgery consulted, s/p subtotal cholecystectomy POD#1. Continue local wound care per Surgery recommendations; had leukocytosis and fever, likely due to surgery. tolerates clear liquids; supportive care with IV antiemetics and pain control with PRN IV Morphine. Continue IV Zosyn for now. Qualifiers: Cholelithiasis location: gallbladder Cholecystitis presence: without cholecystitis Biliary obstruction: without biliary obstruction Qualified Code(s): K80.20 - Calculus of gallbladder without cholecystitis without obstruction (2) Diabetes mellitus Current Visit: Yes Status: Chronic Assessment and plan: Blood sugars noted to be increasing with diet; restart home dose of long acting insulin; Continue Accucheck blood glucose monitoring with sliding scale insulin as needed. Qualifiers: Diabetes mellitus type: type 2 Diabetes mellitus complication status: with unspecified complications Diabetes mellitus intermediate insulin use: without intermediate use Qualified Code(s): E11.8 - Type 2 diabetes mellitus with unspecified complications (3) HTN (hypertension) Current Visit: Yes Status: Chronic Assessment and plan: BP well-controlled; continue home meds; Qualifiers: Hypertension type: essential hypertension Qualified Code(s): I10 - Essential (primary) hypertension (4) HLD (hyperlipidemia) Current Visit: Yes Status: Chronic Qualifiers: Hyperlipidemia type: unspecified Qualified Code(s): E78.5 - Hyperlipidemia , unspecified - Subjective Interval history: Feels better; resolved abdominal pain; denies nausea, vomiting; has no flatus or bowel movements yet; had low grade fever last night; - Constitutional Vitals: Temp Pulse Resp BP Pulse Ox 98.0 F 89 16 118/67 95 11/12/17 10:34 11/12/17 10:34 11/12/17 10:34 11/12/17 10:34 11/12/17 10:34 General appearance: Present: A&O X 3, answers questions appropriately - Respiratory Respiratory exam: Present: decreased breath sounds (at B.L bases), CTAB. Absent : accessory muscle use, rales, rhonchi, wheezes - Cardiovascular Cardiovascular exam: Present: RRR, +S1, +S2. Absent: diastolic murmur, gallop, rubs, systolic murmur - GI/Abdominal GI/Abdominal exam: Present: diminished bowel sounds, soft, no peritoneal signs. Absent: distended, tenderness Additional comments: epigastric and lower abdominal laparoscopic sites healing well; BISI drain in place Internal Medicine: Result - Labs CBC & Chem 7: 11/12/17 03:40 11/12/17 03:40 Labs: Short CBC 11/12/17 Range/Units 03:40 WBC 11.6 H D (4.3-11.1) K/mcL Hgb 11.4 L (11.5-15.4) g/dL Hct 33.7 L (35.3-44.9) % Plt Count 124 L (140-400) K/mcL Neutrophils # 9.3 H (1.6-8.9) K/mcL BMP 11/12/17 03:40 Sodium 139 Potassium 3.9 Chloride 106 Carbon Dioxide 22 BUN 16 Creatinine 0.82 Glucose 195 H Calcium 8.4 L Liver Function 11/12/17 Range/Units 03:40 Total Bilirubin 0.9 (0.2-1.2) mg/dL Direct Bilirubin 0.5 (0.0-0.5) mg/dL AST 36 H (5-34) Units/L ALT 36 (0-55) Units/L Alkaline Phosphatase 42 (38-126) Units/L Albumin 2.8 L (3.5-5.0) g/dL - ABG Interpretation ABG results: PT/INR, D-dimer PT 11.3 Seconds (9.4-12.1) 11/10/17 09:23 - VTE Documentation of Mechanical Device: Graduated compression elastic hosiery Consult Discharge Plan - Plan Referrals: Ry Jay MD [Primary Care Provider] -
[2017-11-12] MEDS: *HR* OxyCODONE/APAP 5/325 TABLET PO PRN ×2 (16:29→22:35)
[2017-11-12] MEDS: *HR* Heparin 5,000 UNIT/ML VIAL SQ SCH (17:35)
[2017-11-12] MEDS: Insulin DETEMIR 100 UNIT/ML X5UNITS SQ SCH (17:36)
[2017-11-12] MEDS ORDERED: Insulin LISPRO 300 UNITS/3 ML VIAL SQ SCH (21:00)
[2017-11-13] MEDS: Piperacillin/Tazobactam 3.375 GM/200 ML BAG IVPB SCH ×3 (01:00→17:41)
[2017-11-13] MEDS ORDERED: *HR* HYDROmorphone (PF) 1 MG/ML SYRINGE IVP ONE (02:35)
[2017-11-13] MEDS: *HR* Heparin 5,000 UNIT/ML VIAL SQ SCH ×2 (06:03→17:41)
[2017-11-13] MEDS: *HR* OxyCODONE/APAP 5/325 TABLET PO PRN (06:06)
[2017-11-13] MEDS: Insulin LISPRO 300 UNITS/3 ML VIAL SQ SCH ×4 (08:09→22:11)
[2017-11-13] MEDS: Lisinopril-HCTZ 20-12.5mg TABLET PO SCH (08:11)
--- NOTE | 2017-11-13 09:11 | Internal Med Progress Note ---
Date of Encounter: 11/13/17 Time of Encounter: 09:09 - Assessment and plan (1) Cholelithiasis Current Visit: Yes Status: Acute Assessment and plan: Patient admitted with abdominal pain, initial CT abdomen with cholelithiasis and pneumobilia, no e/o- cholecystitis. Surgery consulted, s/p subtotal cholecystectomy POD#2. Patient is noted to have recurrent abdominal pain along with worsening leukocytosis, diaphoresis, tachycardia and elevated bilirubin. Discussed with surgery. Repeat CT abdomen/pelvis shows small rim enhancing fluid collection in the gallbladder fossa, mild dilation of the CBD and pancreatic duct from baseline. GI has been consulted, plan for ERCP tomorrow. IV hydration, bowel rest. Continue local wound care per Surgery recommendations; supportive care with IV antiemetics and pain control with PRN IV Morphine. Continue IV Zosyn for now. Qualifiers: Cholelithiasis location: gallbladder Cholecystitis presence: without cholecystitis Biliary obstruction: without biliary obstruction Qualified Code(s): K80.20 - Calculus of gallbladder without cholecystitis without obstruction (2) Diabetes mellitus Current Visit: Yes Status: Chronic Assessment and plan: Blood sugars noted to be elevated. Continue home dose of long acting insulin; Continue Accucheck blood glucose monitoring with increased sliding scale insulin as needed. 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 Qualified Code(s): E11.8 - Type 2 diabetes mellitus with unspecified complications (3) HTN (hypertension) Current Visit: Yes Status: Chronic Assessment and plan: BP well-controlled; continue home meds; Qualifiers: Hypertension type: essential hypertension Qualified Code(s): I10 - Essential (primary) hypertension (4) HLD (hyperlipidemia) Current Visit: Yes Status: Chronic Qualifiers: Hyperlipidemia type: unspecified Qualified Code(s): E78.5 - Hyperlipidemia , unspecified (5) Tachycardia Current Visit: Yes Status: Acute Assessment and plan: EKG reviewed independently, shows sinus tachycardia at 120bpm; start IV hydration and continue supportive care with pain control; related to post-op bile leak; plan for ERCP tomorrow; - Subjective Interval history: Reports diaphoresis and abdominal pain, radiating from right upper to central abdomen and across; no nausea, vomiting; no flatus or bowel movements yet; no fever/chills; - Constitutional Vitals: Temp Pulse Resp BP Pulse Ox 99.1 F 125 18 126/78 93 11/13/17 08:49 11/13/17 08:49 11/13/17 08:49 11/13/17 08:49 11/13/17 08:49 General appearance: Present: A&O X 3, answers questions appropriately - Respiratory Respiratory exam: Present: decreased breath sounds (at left base), CTAB. Absent : accessory muscle use, rales, rhonchi, wheezes - Cardiovascular Cardiovascular exam: Present: RRR, +S1, +S2, tachycardia. Absent: diastolic murmur, gallop, rubs, systolic murmur - GI/Abdominal GI/Abdominal exam: Present: normal bowel sounds, soft (tenderness in RUQ, BISI drain with 20cc bloody fluid), no peritoneal signs. Absent: distended, tenderness - Extremities Exam Extremities exam: Present: full ROM, warm, radial pulses palpable and symmetrical. Absent: calf tenderness, cyanotic, pedal edema Internal Medicine: Result - Labs CBC & Chem 7: 11/13/17 11:00 11/13/17 11:00 - ABG Interpretation ABG results: PT/INR, D-dimer PT 11.3 Seconds (9.4-12.1) 11/10/17 09:23 - VTE Documentation of Mechanical Device: Intermittent pneumatic compression device Consult Discharge Plan - Plan Referrals: Ry Jay MD [Primary Care Provider] -
[2017-11-13 11:13] LABS: Basophils % 0.2 %; Eosinophils % 0.1 %; Hematocrit 38.9 % (35.3-44.9); Hemoglobin 12.9 g/dL (11.5-15.4); Immature Granulocytes % 0.8 % (0-4); Lymphocytes # 2.2 K/mcL (0.6-4.6); Mean Corpuscular HGB Conc 33.2 g/dL (31.6-35.5); Mean Corpuscular Hemoglobin 30.9 pg (28.0-33.3); Mean Corpuscular Volume 93.1 fL (83.0-100.0); Mean Platelet Volume 9.3 fL (9.4-12.4); Monocytes # 1.6 K/mcL (0.0-1.3); Monocytes % 9.7 %; Neutrophils # 12.7 K/mcL (1.6-8.9); Platelet Count 184 K/mcL (140-400); Red Blood Count 4.18 M/mcL (3.82-4.97); Red Cell Distribution Width 14.3 % (11.5-14.5); Segmented Neutrophils % 76.2 %
[2017-11-13 11:23] LABS: Alanine Aminotransferase 31 Units/L (0-55); Albumin 2.9 g/dL (3.5-5.0); Albumin/Globulin Ratio 0.6 (1.1-2.2); Alkaline Phosphatase 50 Units/L (38-126); Aspartate Amino Transferase 21 Units/L (5-34); BUN/Creatinine Ratio 16 (6-26); Bilirubin,Direct 1.1 mg/dL (0.0-0.5); Blood Urea Nitrogen 12 mg/dL (7-20); Calcium 9.1 mg/dL (8.6-10.8); Carbon Dioxide 25 mEq/L (19-29); Chloride 100 mEq/L (98-109); Globulin 4.5 g/dL (2.4-3.5); Glucose 173 mg/dL (70-99); Osmolality,Calculated 282 (280-300); Potassium 3.8 mEq/L (3.5-4.5); Sodium 134 mEq/L (136-145); Total Protein 7.4 g/dL (6.0-8.3); eGFR For African Americans > 60 (> 60); eGFR For Non-African Americans > 60 (> 60)
[2017-11-13 11:24] LABS: Bilirubin,Total 2.1 mg/dL (0.2-1.2)
--- NOTE | 2017-11-13 12:31 | General Surgery Progress Note ---
<Teresa Stein - Last Filed: 11/13/17 13:28> Date of Encounter: 11/13/17 Time of Encounter: 09:45 - Assessment and Plan (1) SIRS (systemic inflammatory response syndrome) Current Visit: Yes Status: Acute Pulmonary VS abdominal in nature given bile leak, recent subtotal cholecystectomy and current findings on chest x-ray indicative of atelectasis and likely mucous plugging. Recommend aggressive pulmonary toileting and management per primary medicine. (2) Cholelithiasis Current Visit: Yes Status: Acute POd #1 subtotal cholecystectomy and drain placement - Most likely secondary to symptomatic cholelithiasis - Abdominal CT in emergency department showed evidence of cholelithiasis with pneumobilia in no apparent cholecystitis -Repeat CT 11/13/2017 with CBD and PD dilation noted - Increaesd leukocytosis of 11.6 to 16.7, low grade temp, and tachycardia consistent with SIRS. -Total bilirubin 2.1, direct bilirubin 1.1, amylase and lipase are within normal limits - Wound drain of 150 ml this am and 260 overnight - Hospitalist are primary and managing SIRS/CXR, will continue to follow along Plan: 1. G.I. has been consult for likely ERCP. Dr. Carmona has spoken with Dr. Solorio regarding. 2. NPO 3. Continue supportive care and discomfort management 4. Continue G.I. and DVT prophylaxis 5. Maintain BISI bulb Qualifiers: Cholelithiasis location: gallbladder Cholecystitis presence: without cholecystitis Biliary obstruction: without biliary obstruction Qualified Code(s): K80.20 - Calculus of gallbladder without cholecystitis without obstruction (3) Bile leak, postoperative Current Visit: Yes Status: Acute Subjective Narrative: Mague reports some abdominal discomfort with inspiration, feeling of heart racing, increased drainage from her BISI, and otherwise denies complaints. Objective Vital Signs - Last 8 Hours Temp Pulse Resp BP Pulse Ox 11/13/17 11:13 998.7 F H 16 122/73 88 11/13/17 08:49 99.1 F 125 18 126/78 93 11/13/17 08:05 99.3 F 18 128/64 91 Intake and Output 11/12/17 11/13/17 11/13/17 23:59 07:59 15:59 Intake Total 560 / 560 200 / 200 120 / 120 Output Total 845 / 845 250 / 250 40 / 40 Balance -285 / -285 -50 / -50 80 / 80 Intake: IV Fluids 200 / 200 200 / 200 Zosyn Premix 3.375 GM/200 ML 3. 200 / 200 200 / 200 375 gm In 200 ml @ 50 mls/hr IVPB Q8H [facility] Rx#:[id number] Oral 360 / 360 0 / 0 120 / 120 Output: Urine 800 / 800 250 / 250 Wound Drainage 45 45 40 / 40 Right Abdomen 45 40 / 40 Other: Meal clears Clears Weight 60.9 kg Blood Glucose* 231 163 Patient Weight 11/13/17 23:59 Weight 60.9 kg - General physical appearance no distress, moderate pain - Eyes normal ocular movement - ENT atraumatic, normocephalic - Neck Neck exam: trachea midline, no venous distension - Respiratory normal expansion, normal respiratory effort, other (Course breath sounds) - Cardiovascular Cardiovascular exam: Present: tachycardia, murmurs - Abdomen Abdomen: Present: bowel sounds present, soft, tender, wound (Right BISI with 70 ML 's mixed SS and bilious material.) - Incision Incision: Present: clean and dry, intact - Integumentary other (Ictaric) - Neurologic normal coordination, normal sensation - Musculoskeletal normal posture - Psychiatric oriented to time, oriented to person, oriented to place, speech is normal, memory intact - Labs 11/13/17 11:00 11/13/17 11:00 Diabetes panel 11/13/17 Range/Units 11:00 Sodium 134 L (136-145) mEq/L Potassium 3.8 (3.5-4.5) mEq/L Chloride 100 (98-109) mEq/L Carbon Dioxide 25 (19-29) mEq/L BUN 12 (7-20) mg/dL Creatinine 0.75 (0.57-1.11) mg/dL Glucose 173 H (70-99) mg/dL Calcium 9.1 (8.6-10.8) mg/dL AST 21 (5-34) Units/L ALT 31 (0-55) Units/L Alkaline Phosphatase 50 (38-126) Units/L Albumin 2.9 L (3.5-5.0) g/dL Calcium panel 11/13/17 Range/Units 11:00 Calcium 9.1 (8.6-10.8) mg/dL Albumin 2.9 L (3.5-5.0) g/dL Pituitary panel 11/13/17 Range/Units 11:00 Sodium 134 L (136-145) mEq/L Potassium 3.8 (3.5-4.5) mEq/L Chloride 100 (98-109) mEq/L Carbon Dioxide 25 (19-29) mEq/L BUN 12 (7-20) mg/dL Creatinine 0.75 (0.57-1.11) mg/dL Glucose 173 H (70-99) mg/dL Calcium 9.1 (8.6-10.8) mg/dL Adrenal panel 11/13/17 Range/Units 11:00 Sodium 134 L (136-145) mEq/L Potassium 3.8 (3.5-4.5) mEq/L Chloride 100 (98-109) mEq/L Carbon Dioxide 25 (19-29) mEq/L BUN 12 (7-20) mg/dL Creatinine 0.75 (0.57-1.11) mg/dL Glucose 173 H (70-99) mg/dL Calcium 9.1 (8.6-10.8) mg/dL Total Bilirubin 2.1 H D (0.2-1.2) mg/dL AST 21 (5-34) Units/L ALT 31 (0-55) Units/L Alkaline Phosphatase 50 (38-126) Units/L Albumin 2.9 L (3.5-5.0) g/dL - VTE Documentation of Mechanical Device: Intermittent pneumatic compression device Consult Discharge Plan - Plan Referrals: Ry Jay MD [Primary Care Provider] - <Tien Carmona - Last Filed: 11/14/17 14:55> Date of Encounter: 11/13/17 Objective Vital Signs - Last 8 Hours Temp Pulse Resp BP Pulse Ox 11/14/17 14:47 98.9 F 88 18 132/76 93 11/14/17 14:15 98.7 F 90 18 122/60 92 11/14/17 14:00 97.5 F L 84 18 122/75 94 11/14/17 13:50 97.5 F L 89 18 130/68 95 11/14/17 13:40 94 20 125/68 94 11/14/17 13:30 91 18 111/59 94 11/14/17 13:20 98.5 F 103 20 122/68 94 11/14/17 12:23 98.9 F 93 20 113/69 90 11/14/17 11:26 98.3 F 93 16 113/69 91 Intake and Output 11/13/17 11/14/17 11/14/17 23:59 07:59 15:59 Intake Total 1400 / 1400 200 / 200 Output Total 1025 / 1025 / 20 260 / 260 Balance 375 / 375 180 / 180 -260 / -260 Intake: IV Fluids 1400 / 1400 200 / 200 0.9 % Sodium Chloride 1,000 ML 1000 / 1000 @ 100 mls/hr IVC .Q10H [facility] Rx#: [id number] Zosyn Premix 3.375 GM/200 ML 3. 400 / 400 200 / 200 375 gm In 200 ml @ 50 mls/hr IVPB Q8H [facility] Rx#:[id number] Oral 0 / 0 0 / 0 Output: Urine 1000 / 1000 0 / 0 150 / 150 Wound Drainage / 110 / 110 Right Abdomen 110 / 110 Other: Meal NPO NPO for breakfast # Bowel Movements 0 0 Weight 60.827 kg Blood Glucose* 125 98 90 Patient Weight 11/14/17 23:59 Weight 60.827 kg - Labs 11/14/17 08:22 11/14/17 06:40 Diabetes panel 11/14/17 Range/Units 06:40 Sodium 138 (136-145) mEq/L Potassium 3.7 (3.5-4.5) mEq/L Chloride 107 (98-109) mEq/L Carbon Dioxide 22 (19-29) mEq/L BUN 12 (7-20) mg/dL Creatinine 0.67 (0.57-1.11) mg/dL Glucose 106 H (70-99) mg/dL Calcium 8.5 L (8.6-10.8) mg/dL AST 16 (5-34) Units/L ALT 18 (0-55) Units/L Alkaline Phosphatase 45 (38-126) Units/L Albumin 2.3 L D (3.5-5.0) g/dL Calcium panel 11/14/17 Range/Units 06:40 Calcium 8.5 L (8.6-10.8) mg/dL Albumin 2.3 L D (3.5-5.0) g/dL Pituitary panel 11/14/17 Range/Units 06:40 Sodium 138 (136-145) mEq/L Potassium 3.7 (3.5-4.5) mEq/L Chloride 107 (98-109) mEq/L Carbon Dioxide 22 (19-29) mEq/L BUN 12 (7-20) mg/dL Creatinine 0.67 (0.57-1.11) mg/dL Glucose 106 H (70-99) mg/dL Calcium 8.5 L (8.6-10.8) mg/dL Adrenal panel 11/14/17 Range/Units 06:40 Sodium 138 (136-145) mEq/L Potassium 3.7 (3.5-4.5) mEq/L Chloride 107 (98-109) mEq/L Carbon Dioxide 22 (19-29) mEq/L BUN 12 (7-20) mg/dL Creatinine 0.67 (0.57-1.11) mg/dL Glucose 106 H (70-99) mg/dL Calcium 8.5 L (8.6-10.8) mg/dL Total Bilirubin 1.1 (0.2-1.2) mg/dL AST 16 (5-34) Units/L ALT 18 (0-55) Units/L Alkaline Phosphatase 45 (38-126) Units/L Albumin 2.3 L D (3.5-5.0) g/dL - Attending Attestation I have personally performed a face to face evaluation on this patient. I have reviewed and agree with the care plan. History and Exam by me shows: I reviewed the above assessment and evaluation and agree with the above plan.
[2017-11-13 12:53] LABS: Amylase 57 Units/L (25-125); Lipase 20 Units/L (8-78)
[2017-11-13] MEDS: 0.9 % Sodium Chloride 1,000 ML IVC SCH (12:57)
--- NOTE | 2017-11-13 13:01 | Gastroenterology Consult Note ---
<Alek Buck - Last Filed: 11/13/17 12:59> Date of Encounter: 11/13/17 Time of Encounter: 10:30 - Assessment and plan (1) Bile leak, postoperative Current Visit: Yes Status: Acute Assessment and plan: CT A/P showed very small rim enhancing fluid collection in the gallbladder fossa and trace free fluid adjacent to the liver. Total bili up to 2.1. Plan for ERCP tomorrow. Keep pt NPO at midnight. Monitor hepatic panel daily. (2) Cholelithiasis Current Visit: Yes Status: Acute Assessment and plan: s/p subtotal cholecystectomy, POD #2. Qualifiers: Cholelithiasis location: gallbladder Cholecystitis presence: without cholecystitis Biliary obstruction: without biliary obstruction Qualified Code(s): K80.20 - Calculus of gallbladder without cholecystitis without obstruction - Time Spent With Patient Total time spent is greater than 50% in coordination of care (as documented) at patient's floor/unit and/or counseling patient: GI History of Present Illness - Data of Consult Patient: new to practice Consult date: 11/13/17 Requesting Physician: Kristyn Vaughn MD - Consult Narrative Reason for consult: Possible bile leak History of present illness: Ms. Olivo is a 72 year old female with PMHx of DM, HTN, HLD, who presented with complaints of abdominal pain. CT abdomen revealed cholelithiasis with pneumobilia. Surgery was consulted and she is status post partial laproscopic cholecystectomy. We have been consulted for possible bile leak. Total bili increased to 2.[address] A/P showed very small rim enhancing fluid collection in the gallbladder fossa and trace free fluid adjacent to the liver. Pt reports mild abdominal pain this morning. Procedures: None NSAIDs: None Anticoagulation: None Past Med Surg Social Fam HX - Past Medical History Medical history: cancer, diabetes, hyperlipidemia, hypertension Psychiatric history: no psych history - Social History Smoking Status: Current every day smoker Packs per day: 0.5 Smokeless Tobacco Status: No Alcohol use: none Drug use: none - Family History Sister Living Status: Still Living Hx Family Cancer: Yes (breast ca) Mother Living Status: Hx Family Endocrine Disorder: Yes - Gastrointestinal Gastrointestinal: Present: as per HPI - Constitutional Constitutional: as per HPI - EENT Eyes: as per HPI Ears: Present: as per HPI Nose, mouth and throat: Present: as per HPI - Cardiovascular Cardiovascular ROS: Present: as per HPI - Respiratory Respiratory IM: Present: as per HPI - Genitourinary Genitourinary: Absent: change in color, Urinary frequency - Neurological ROS Neurological GI: Present: as per HPI - Hematologic/Lymphatic Hematologic/Lymphatic pediatric: Present: as per HPI - Musculoskeletal Musculoskeletal ROS GI: Present: as per HPI - Integumentary Integumentary GI: Present: as per HPI - Psychiatric ROS Psychiatric GI: Present: as per HPI - Endocrine Endocrine IM: Present: as per HPI - Constitutional Vitals: Temp Pulse Resp BP Pulse Ox 101.2 F H 129 20 150/66 89 11/13/17 12:35 11/13/17 12:35 11/13/17 12:35 11/13/17 12:35 11/13/17 12:35 General appearance: Present: cooperative, A&O X 3, no acute distress, answers questions appropriately - Head Head exam: Present: atraumatic, normocephalic - Eye Eye exam: Present: normal appearance, sclera anicteric - ENT ENT exam: Present: mucous membranes dry - Neck Neck exam general surgery: Present: normal inspection, trachea midline - Respiratory Respiratory exam: Present: decreased breath sounds, CTAB - Cardiovascular Cardiovascular exam: Present: RRR, +S1, +S2 - GI/Abdominal GI/Abdominal exam: Present: soft, tenderness (RUQ), no peritoneal signs. Absent : distended, firm, guarding Additional comments: BISI drain RUQ - Rectal Rectal exam: Present: deferred - Extremities Exam Extremities exam: Present: warm - Neurological Exam Neurological exam: Present: no focal deficits - Psychiatric Psychiatric exam: Present: normal affect, normal mood - Skin Skin exam: Present: dry, intact, normal color, warm Results - Labs CBC & Chem 7: 11/13/17 11:00 11/13/17 11:00 Labs: Last Result Calcium 9.1 mg/dL (8.6-10.8) 11/13/17 11:00 Entire Visit Hgb 12.9 g/dL (11.5-15.4) D 11/13/17 11:00 Hct 38.9 % (35.3-44.9) 11/13/17 11:00 PT 11.3 Seconds (9.4-12.1) 11/10/17 09:23 Total Bilirubin 2.1 mg/dL (0.2-1.2) H D 11/13/17 11:00 AST 21 Units/L (5-34) 11/13/17 11:00 ALT 31 Units/L (0-55) 11/13/17 11:00 Amylase 57 Units/L (25-125) 11/13/17 11:00 Lipase 20 Units/L (8-78) 11/13/17 11:00 - ABG ABG results: PT/INR, D-dimer PT 11.3 Seconds (9.4-12.1) 11/10/17 09:23 - Impressions Impressions Chest X-Ray 11/13/17 09:11 IMPRESSION: Low lung volumes. New left lower lobe opacification which may represent lobar collapse/atelectasis. Mucous plugging should be considered. Left mastectomy. D/ / 11/13/2017 09:31:37 Alli Malloy MD / ashley Interpreting Provider: Alli Malloy MD Abdomen/Pelvis CT 11/13/17 11:30 IMPRESSION: Very small rim enhancing fluid collection in the gallbladder fossa. This may be due to seroma, biloma or abscess. Trace amount of free fluid adjacent to the liver. Bibasilar airspace disease is most likely atelectasis although superimposed pneumonia cannot be excluded. 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 Further evaluation with a CT examination might be considered. D/ / Dillon Greenberg MD / Dillon Greenberg MD Interpreting Provider: Dillon Greenberg MD Consult Discharge Plan - Plan Referrals: Ry Jay MD [Primary Care Provider] - <Balwinder Solorio - Last Filed: 11/13/17 18:03> Date of Encounter: 11/13/17 Time of Encounter: 14:00 - Time Spent With Patient Total time spent is greater than 50% in coordination of care (as documented) at patient's floor/unit and/or counseling patient: GI History of Present Illness - Data of Consult Requesting Physician: Kristyn Vaughn MD - Consult Narrative History of present illness: Ms. Olivo is a 72 year old female - Constitutional Vitals: Temp Pulse Resp BP Pulse Ox 99.9 F H 120 16 151/70 93 11/13/17 15:42 11/13/17 15:42 11/13/17 15:42 11/13/17 15:42 11/13/17 15:42 Results - Labs CBC & Chem 7: 11/13/17 11:00 11/13/17 11:00 Labs: Last Result Calcium 9.1 mg/dL (8.6-10.8) 11/13/17 11:00 Entire Visit Hgb 12.9 g/dL (11.5-15.4) D 11/13/17 11:00 Hct 38.9 % (35.3-44.9) 11/13/17 11:00 PT 11.3 Seconds (9.4-12.1) 11/10/17 09:23 Total Bilirubin 2.1 mg/dL (0.2-1.2) H D 11/13/17 11:00 AST 21 Units/L (5-34) 11/13/17 11:00 ALT 31 Units/L (0-55) 11/13/17 11:00 Amylase 57 Units/L (25-125) 11/13/17 11:00 Lipase 20 Units/L (8-78) 11/13/17 11:00 - ABG ABG results: PT/INR, D-dimer PT 11.3 Seconds (9.4-12.1) 11/10/17 09:23 - Impressions Impressions Chest X-Ray 11/13/17 09:11 IMPRESSION: Low lung volumes. New left lower lobe opacification which may represent lobar collapse/atelectasis. Mucous plugging should be considered. Left mastectomy. D/ / 11/13/2017 09:31:37 Alli Malloy MD / lgray Interpreting Provider: Alli Malloy MD Abdomen/Pelvis CT 11/13/17 11:30 IMPRESSION: Very small rim enhancing fluid collection in the gallbladder fossa. This may be due to seroma, biloma or abscess. Trace amount of free fluid adjacent to the liver. Bibasilar airspace disease is most likely atelectasis although superimposed pneumonia cannot be excluded. 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 Further evaluation with a CT examination might be considered. D/ / Dillon Greenberg MD / Dillon Greenberg MD Interpreting Provider: Dillon Greenberg MD - Attending Attestation I examined this patient and my medical decision-making was reviewed with the Resident Physician. I agree with the documented findings, disposition and treatment plan as described except to the extent set forth below.
[2017-11-13] MEDS ORDERED: *HR* OxyCODONE/APAP 5/325 TABLET PO PRN (13:23)
[2017-11-13] MEDS: Insulin DETEMIR 100 UNIT/ML X5UNITS SQ SCH (17:41)
[2017-11-14] MEDS: Piperacillin/Tazobactam 3.375 GM/200 ML BAG IVPB SCH ×3 (02:02→16:51)
[2017-11-14] MEDS: *HR* Heparin 5,000 UNIT/ML VIAL SQ SCH ×2 (05:21→16:50)
[2017-11-14 07:16] LABS: Alanine Aminotransferase 18 Units/L (0-55); Albumin/Globulin Ratio 0.6 (1.1-2.2); Alkaline Phosphatase 45 Units/L (38-126); Aspartate Amino Transferase 16 Units/L (5-34); BUN/Creatinine Ratio 18 (6-26); Bilirubin,Direct 0.5 mg/dL (0.0-0.5); Bilirubin,Indirect 0.6 mg/dL (0.0-1.2); Bilirubin,Total 1.1 mg/dL (0.2-1.2); Blood Urea Nitrogen 12 mg/dL (7-20); Calcium 8.5 mg/dL (8.6-10.8); Carbon Dioxide 22 mEq/L (19-29); Chloride 107 mEq/L (98-109); Globulin 4.1 g/dL (2.4-3.5); Glucose 106 mg/dL (70-99); Lipase 21 Units/L (8-78); Magnesium 1.9 mg/dL (1.6-2.6); Osmolality,Calculated 286 (280-300); Potassium 3.7 mEq/L (3.5-4.5); Sodium 138 mEq/L (136-145); Total Protein 6.4 g/dL (6.0-8.3); eGFR For African Americans > 60 (> 60); eGFR For Non-African Americans > 60 (> 60)
[2017-11-14 07:17] LABS: Albumin 2.3 g/dL (3.5-5.0)
[2017-11-14 08:36] LABS: Basophils % 0.2 %; Eosinophils # 0.1 K/mcL (0.0-0.6); Eosinophils % 1.4 %; Hemoglobin 11.6 g/dL (11.5-15.4); Immature Granulocytes % 0.5 % (0-4); Immature Platelets 3.3 % (1.1-6.1); Lymphocytes # 1.6 K/mcL (0.6-4.6); Lymphocytes % 18.6 %; Mean Corpuscular HGB Conc 33.1 g/dL (31.6-35.5); Mean Corpuscular Hemoglobin 30.7 pg (28.0-33.3); Mean Corpuscular Volume 92.6 fL (83.0-100.0); Mean Platelet Volume 9.2 fL (9.4-12.4); Monocytes # 0.8 K/mcL (0.0-1.3); Monocytes % 9.4 %; Neutrophils # 6.1 K/mcL (1.6-8.9); Platelet Count 174 K/mcL (140-400); Red Blood Count 3.78 M/mcL (3.82-4.97); Red Cell Distribution Width 13.9 % (11.5-14.5); Segmented Neutrophils % 69.9 %
[2017-11-14] MEDS: Insulin LISPRO 300 UNITS/3 ML VIAL SQ SCH ×4 (08:49→21:25)
--- NOTE | 2017-11-14 08:50 | Anesthesia Evaluation PreOp ---
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 HX Other Medical History: Diabetes Type II Anesthesia History: No Prior Anesthetic Complications, Past Anesthesia (Breast Ca s/p L-breast mastectomy, Skin Ca/BAsal Cell Ca - face, Hyster) : No Alcohol Use: none Drug use: none Medications and Allergies Glimepiride [Amaryl] 4 mg PO BID 11/10/17 [History] Insulin DETEMIR [Levemir Flextouch] 22 unit SQ QPM 11/10/17 [History] Lisinopril-HCTZ 20-12.5 [Prinzide 20-12.5] 1 tab PO DAILY 11/10/17 [History] Simvastatin [Zocor] 40 mg PO HS 11/10/17 [History] Sitagliptin Phos/Metformin HCl [Janumet 50-1,000 mg Tablet] 1 tab PO BID [History] 3 Allergy/AdvReac Type Severity Reaction Status Date / Time No Known Allergies Allergy Verified 11/10/17 11:36 - Meds/Allergy Pre-op Review Medications Reviewed: Yes Allergies Reviewed: Yes Beta Blockers on Current Med List: No Anesthesia Results - Labs 11/14/17 08:22 11/14/17 06:40 - Imaging EKG: image reviewed (SR) Anesthesia Exam O2 Sat Weight 60.827 kg O2 Sat by Pulse Oximetry 95 O2 Sat by Pulse Oximetry 93 O2 Sat by Pulse Oximetry 95 O2 Sat by Pulse Oximetry 95 O2 Sat by Pulse Oximetry 93 O2 Sat by Pulse Oximetry 89 O2 Sat by Pulse Oximetry 88 Vital Signs Temp Pulse Resp BP Pulse Ox 97.9 F 85 14 109/70 94 11/10/17 03:30 11/10/17 03:30 11/10/17 03:30 11/10/17 03:30 11/10/17 03:30 Vital Signs/O2 Sat, Most Current Temp Pulse Resp BP Pulse Ox 98.7 F 99 14 109/70 95 11/14/17 06:26 11/14/17 06:26 11/14/17 06:26 11/14/17 06:26 11/14/17 06:26 Blood glucose: 114 Height: 5' Weight: 134# NPO (# of Hours): > 8 hrs Pain Scale: 0 Pain Scale Used: Numeric (1 - 10) - HEENT Pupil (Motor): Pupils equal, EOMI Mallampati: II Teeth: Edentulous Oral Opening: Greater than 3 - HARDWARE ENGINEER LOC: Oriented HARDWARE ENGINEER Motor: Normal RUE, Normal LUE, Normal RLE, Normal LLE, Normal Face HARDWARE ENGINEER Sensory: Normal: RUE, LUE, RLE, LLE, Face - Cardiac Rhythm: Regular Murmur: None JVD: No Carotid Bruit: No - Pulmonary Breath Sounds: bilateral Clear Respiratory Effort: Symmetrical Anesthesia Assess/Plan ASA Score: 3 Modified Duff Scale for Level of Consciousness: Cooperative, oriented, and tranquil Anesthetic Plan: General Autologous Blood: Yes Monitoring Plan: Standard Monitors Recovery Plan: PACU
[2017-11-14] MEDS: Lisinopril-HCTZ 20-12.5mg TABLET PO SCH (08:51)
[2017-11-14] MEDS: 0.9 % Sodium Chloride 1,000 ML IVC SCH ×2 (09:00→21:23)
--- NOTE | 2017-11-14 09:09 | Internal Med Progress Note ---
Date of Encounter: 11/14/17 Time of Encounter: 09:08 - Assessment and plan (1) Cholelithiasis Current Visit: Yes Status: Acute Assessment and plan: Patient admitted with abdominal pain, initial CT abdomen with cholelithiasis and pneumobilia, no e/o- cholecystitis. Surgery consulted, s/p subtotal cholecystectomy POD#3. Patient is noted to have recurrent abdominal pain along with worsening leukocytosis, diaphoresis, tachycardia and elevated bilirubin. Concern for bile leak; labs and symptoms improved today. Surgery and GI on board, plan for ERCP today. Continue NPO, IV hydration. supportive care with IV antiemetics and pain control with PRN IV Morphine. Continue IV Zosyn- day 4 for now. Qualifiers: Cholelithiasis location: gallbladder Cholecystitis presence: without cholecystitis Biliary obstruction: without biliary obstruction Qualified Code(s): K80.20 - Calculus of gallbladder without cholecystitis without obstruction (2) Diabetes mellitus Current Visit: Yes Status: Chronic Assessment and plan: Blood sugars noted to be better controlled, and now has hypoglycemic episodes, due to being NPO; will decrease basal insulin. Continue Accucheck blood glucose monitoring with increased sliding scale insulin as needed. 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 Qualified Code(s): E11.8 - Type 2 diabetes mellitus with unspecified complications (3) HTN (hypertension) Current Visit: Yes Status: Chronic Assessment and plan: BP well-controlled; continue home meds; Qualifiers: Hypertension type: essential hypertension Qualified Code(s): I10 - Essential (primary) hypertension (4) HLD (hyperlipidemia) Current Visit: Yes Status: Chronic Qualifiers: Hyperlipidemia type: unspecified Qualified Code(s): E78.5 - Hyperlipidemia , unspecified (5) Tachycardia Current Visit: Yes Status: Resolved - Subjective Interval history: Feels better today, with improved abdominal pain and diaphoresis; reports flatus , no bowel movements yet. No fever/chills, nausea, vomiting. HR and labs improved; awaiting ERCP today; - Constitutional Vitals: Temp Pulse Resp BP Pulse Ox 98.7 F 99 14 109/70 95 11/14/17 06:26 11/14/17 06:26 11/14/17 06:26 11/14/17 06:26 11/14/17 06:26 General appearance: Present: A&O X 3, answers questions appropriately - Respiratory Respiratory exam: Present: decreased breath sounds (improving at left base), CTAB. Absent: accessory muscle use, rales, rhonchi, wheezes - Cardiovascular Cardiovascular exam: Present: RRR, +S1, +S2. Absent: diastolic murmur, gallop, rubs, systolic murmur - GI/Abdominal GI/Abdominal exam: Present: normal bowel sounds, soft, no peritoneal signs. Absent: distended, tenderness - Extremities Exam Extremities exam: Present: full ROM, warm, radial pulses palpable and symmetrical. Absent: calf tenderness, cyanotic, pedal edema Internal Medicine: Result - Labs CBC & Chem 7: 11/14/17 08:22 11/14/17 06:40 Labs: Short CBC 11/13/17 11/14/17 Range/Units 11:00 08:22 WBC 16.7 H 8.7 (4.3-11.1) K/mcL Hgb 12.9 D 11.6 (11.5-15.4) g/dL Hct 38.9 35.0 L (35.3-44.9) % Plt Count 184 174 (140-400) K/mcL Neutrophils # 12.7 H 6.1 (1.6-8.9) K/mcL BMP 11/13/17 11/14/17 11:00 06:40 Sodium 134 L 138 Potassium 3.8 3.7 Chloride 100 107 Carbon Dioxide 25 22 BUN 12 12 Creatinine 0.75 0.67 Glucose 173 H 106 H Calcium 9.1 8.5 L Liver Function 11/13/17 11/14/17 Range/Units 11:00 06:40 Total Bilirubin 2.1 H D 1.1 (0.2-1.2) mg/dL Direct Bilirubin 1.1 H 0.5 (0.0-0.5) mg/dL AST 21 16 (5-34) Units/L ALT 31 18 (0-55) Units/L Alkaline Phosphatase 50 45 (38-126) Units/L Albumin 2.9 L 2.3 L D (3.5-5.0) g/dL - ABG Interpretation ABG results: PT/INR, D-dimer PT 11.3 Seconds (9.4-12.1) 11/10/17 09:23 - Impressions Impressions Chest X-Ray 11/13/17 09:11 IMPRESSION: Low lung volumes. New left lower lobe opacification which may represent lobar collapse/atelectasis. Mucous plugging should be considered. Left mastectomy. D/ / 11/13/2017 09:31:37 Alli Malloy MD / ashley Interpreting Provider: Alli Malloy MD Abdomen/Pelvis CT 11/13/17 11:30 IMPRESSION: Very small rim enhancing fluid collection in the gallbladder fossa. This may be due to seroma, biloma or abscess. Trace amount of free fluid adjacent to the liver. Bibasilar airspace disease is most likely atelectasis although superimposed pneumonia cannot be excluded. 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 Further evaluation with a CT examination might be considered. D/ / Dillon Greenberg MD / Dillon Greenberg MD Interpreting Provider: Dillon Greenberg MD - VTE Documentation of Mechanical Device: Intermittent pneumatic compression device Consult Discharge Plan - Plan Referrals: Ry Jay MD [Primary Care Provider] -
--- NOTE | 2017-11-14 09:46 | General Surgery Progress Note ---
Date of Encounter: 11/14/17 Time of Encounter: 09:42 - Assessment and Plan (1) SIRS (systemic inflammatory response syndrome) Current Visit: Yes Status: Acute Patient was febrile with MAXIMUM TEMPERATURE of 101.2 and tachycardic yesterday as well as a WBC of 16.7 Possible etiologies include bile duct leak as well as pulmonary Patient's vital signs improved today, no longer febrile. WBC back to within normal limits She is scheduled for ERCP this afternoon with gastroenterology Will continue monitoring this time. Continue Zosyn Further management per primary team (2) Abdominal pain Current Visit: Yes Status: Inactive - Most likely secondary to symptomatic cholelithiasis - Abdominal CT in emergency department showed evidence of cholelithiasis with pneumobilia in no apparent cholecystitis -Status post partial laparoscopic subtotal cholecystectomy postoperative day #3 - She developed fever and white count yesterday, today's labs show a white count of 8.7, she is afebrile - Wound drain of 100 mL this morning, previously 195 - Repeat CT scan on 11/13/17 with common bile duct and pancreatic duct dilation - Concern for bile leak s/p partial cholecystectomy. - Gastroenterology consulted for ERCP this afternoon. Patient is nothing by mouth Qualifiers: Abdominal location: right upper quadrant Qualified Code(s): R10.11 - Right upper quadrant pain (3) Cholelithiasis Current Visit: Yes Status: Inactive As above for abdominal pain. POD #3 for partial laparoscopic cholecystectomy Qualifiers: Cholelithiasis location: gallbladder and bile duct Cholecystitis presence: without cholecystitis Biliary obstruction: without biliary obstruction Qualified Code(s): K80.70 - Calculus of gallbladder and bile duct without cholecystitis without obstruction (4) HTN (hypertension) Current Visit: Yes Status: Chronic Well-controlled, further management per primary team Qualifiers: Hypertension type: essential hypertension Qualified Code(s): I10 - Essential (primary) hypertension (5) HLD (hyperlipidemia) Current Visit: Yes Status: Chronic Qualifiers: Hyperlipidemia type: unspecified Qualified Code(s): E78.5 - Hyperlipidemia , unspecified (6) DVT prophylaxis Current Visit: Yes Status: Acute SCDs Subjective Patient reports: no new complaints, feels better, pain is less, tolerating a regular diet, voiding w/o difficulty Narrative: Patient seen and examined bedside this morning. She states that her abdominal pain is well controlled this time. She denies any symptoms of nausea, vomiting. She is nothing by mouth this morning for ERCP with gastroenterology, however she states prior to this she is tolerating her diet without complaints. Objective Vital Signs - Last 8 Hours Temp Pulse Resp BP Pulse Ox 11/14/17 06:26 98.7 F 99 14 109/70 95 11/14/17 05:13 99.3 F 95 14 112/68 93 Intake and Output 11/13/17 11/14/17 11/14/17 23:59 07:59 15:59 Intake Total 1400 / 1400 200 / 200 Output Total 1025 / 1025 20 / 20 80 / 80 Balance 375 / 375 180 / 180 -80 / -80 Intake: IV Fluids 1400 / 1400 200 / 200 0.9 % Sodium Chloride 1,000 ML 1000 / 1000 @ 100 mls/hr IVC .Q10H FRANCIA Rx#: [id number] Zosyn Premix 3.375 GM/200 ML 3. 400 / 400 200 / 200 375 gm In 200 ml @ 50 mls/hr IVPB Q8H FRANCIA Rx#:[id number] Oral 0 / 0 0 / 0 Output: Urine 1000 / 1000 0 / 0 Wound Drainage 25 / 25 20 / 20 80 / 80 Right Abdomen 25 / 25 20 / 20 80 / 80 Other: Meal NPO NPO for breakfast # Bowel Movements 0 Weight 60.827 kg Blood Glucose* 125 98 Patient Weight 11/14/17 23:59 Weight 60.827 kg - General physical appearance well developed, well nourished, no distress - Respiratory normal expansion, normal respiratory effort, clear to auscultation - Cardiovascular Cardiovascular exam: Present: RRR, no murmurs/rubs/gallops - Abdomen Abdomen: Present: bowel sounds present, soft, non tender - Incision Incision: Present: clean and dry, intact - Labs 11/14/17 08:22 11/14/17 06:40 Diabetes panel 11/13/17 11/14/17 Range/Units 11:00 06:40 Sodium 134 L 138 (136-145) mEq/L Potassium 3.8 3.7 (3.5-4.5) mEq/L Chloride 100 107 (98-109) mEq/L Carbon Dioxide 25 22 (19-29) mEq/L BUN 12 12 (7-20) mg/dL Creatinine 0.75 0.67 (0.57-1.11) mg/dL Glucose 173 H 106 H (70-99) mg/dL Calcium 9.1 8.5 L (8.6-10.8) mg/dL AST 21 16 (5-34) Units/L ALT 31 18 (0-55) Units/L Alkaline Phosphatase 50 45 (38-126) Units/L Albumin 2.9 L 2.3 L D (3.5-5.0) g/dL Calcium panel 11/13/17 11/14/17 Range/Units 11:00 06:40 Calcium 9.1 8.5 L (8.6-10.8) mg/dL Albumin 2.9 L 2.3 L D (3.5-5.0) g/dL Pituitary panel 11/13/17 11/14/17 Range/Units 11:00 06:40 Sodium 134 L 138 (136-145) mEq/L Potassium 3.8 3.7 (3.5-4.5) mEq/L Chloride 100 107 (98-109) mEq/L Carbon Dioxide 25 22 (19-29) mEq/L BUN 12 12 (7-20) mg/dL Creatinine 0.75 0.67 (0.57-1.11) mg/dL Glucose 173 H 106 H (70-99) mg/dL Calcium 9.1 8.5 L (8.6-10.8) mg/dL Adrenal panel 11/13/17 11/14/17 Range/Units 11:00 06:40 Sodium 134 L 138 (136-145) mEq/L Potassium 3.8 3.7 (3.5-4.5) mEq/L Chloride 100 107 (98-109) mEq/L Carbon Dioxide 25 22 (19-29) mEq/L BUN 12 12 (7-20) mg/dL Creatinine 0.75 0.67 (0.57-1.11) mg/dL Glucose 173 H 106 H (70-99) mg/dL Calcium 9.1 8.5 L (8.6-10.8) mg/dL Total Bilirubin 2.1 H D 1.1 (0.2-1.2) mg/dL AST 21 16 (5-34) Units/L ALT 31 18 (0-55) Units/L Alkaline Phosphatase 50 45 (38-126) Units/L Albumin 2.9 L 2.3 L D (3.5-5.0) g/dL - VTE Documentation of Mechanical Device: Intermittent pneumatic compression device Consult Discharge Plan - Plan Referrals: Ry Jay MD [Primary Care Provider] -
[2017-11-14] MEDS ORDERED: *HR* Propofol 200 MG/20 ML VIAL IVP ONE ×2 (10:26→12:08)
[2017-11-14] MEDS ORDERED: *HR* Rocuronium Bromide 50 MG/5 ML VIAL ONE (12:09)
[2017-11-14] MEDS ORDERED: Lidocaine -MPF 4% 5 ML AMPUL ONE (12:09)
[2017-11-14] MEDS ORDERED: *HR* Succinylcholine 200 MG/10 ML VIAL IVP ONE (12:09)
[2017-11-14] MEDS ORDERED: *HR* FentaNYL (PF) 100 MCG/2 ML VIAL ONE (12:09)
[2017-11-14] MEDS ORDERED: Ondansetron 4 MG/2 ML VIAL ONE ×2 (12:09→12:51)
[2017-11-14] MEDS ORDERED: Dexamethasone 4 MG/ML VIAL ONE ×2 (12:09→12:51)
[2017-11-14] MEDS ORDERED: Lidocaine -MPF 2% 2 ML VIAL ONE (12:09)
[2017-11-14] MEDS ORDERED: *HR* HYDROmorphone (PF) 1 MG/ML SYRINGE IVP PRN (12:56)
[2017-11-14] MEDS ORDERED: Ondansetron 4 MG/2 ML VIAL IVP ONE (12:56)
[2017-11-14] MEDS ORDERED: *HR* Promethazine 25 MG/ML VIAL IVP PRN (12:56)
[2017-11-14] MEDS ORDERED: Indomethacin 50 MG SUPP.RECT RC ONE (13:19)
--- NOTE | 2017-11-14 13:55 | Anesthesia Evaluation Post Op ---
Date of Encounter: 11/14/17 Time of Encounter: 13:50 - Vital Signs Vital Signs: Selected Entries 11/14/17 13:20 11/14/17 13:40 Temperature 98.5 F Pulse Rate 94 Respiratory Rate 20 Blood Pressure 125/68 O2 Sat by Pulse Oximetry 94 - Lungs Lungs: Clear Ascult./Percussion - Airway Airway: Non-obstructed - Cardiovascular Regular Rate - Mental Status Mental Status: Alert & Oriented, Answers Appropriately - Nausea Vomiting Nausea Vomiting: Not Present - Hydration Hydration: Ice chips, Has not voided - Discharge PostOp Status: Transfer Patient to floor
--- NOTE | 2017-11-14 17:19 | Electrocardiograph Report ---
[place] [id number] Test Date: 2017-11-13 Pat Name: Mague Olivo Department: 115 Room: 3A12 Gender: F [employer] Counseling Aide: YONAS MUSEB: 1945 Requested By: Kristyn Vaughn Order Number: [id number] Reading MD: Fariha Abraham Measurements Intervals [place] Rate: 124 P: 20 WI: 138 QRS: -10 QRSD: 83 T: 0 QT: 295 QTc: 369 Interpretive Statements SINUS TACHYCARDIA VOLTAGE CRITERIA FOR LVH INFERIOR MYOCARDIAL INFARCTION, PROBABLY OLD Electronically Signed On 11-14-2017 17:18:07 EST by Fariha Abraham
[2017-11-14] MEDS ORDERED: Insulin DETEMIR 100 UNIT/ML X5UNITS SQ SCH (18:00)
[2017-11-15] MEDS: Piperacillin/Tazobactam 3.375 GM/200 ML BAG IVPB SCH ×2 (01:58→10:32)
[2017-11-15 04:40] LABS: Basophils % 0.2 %; Hematocrit 31.4 % (35.3-44.9); Hemoglobin 10.4 g/dL (11.5-15.4); Immature Granulocytes % 0.4 % (0-4); Lymphocytes # 0.8 K/mcL (0.6-4.6); Lymphocytes % 16.4 %; Mean Corpuscular HGB Conc 33.1 g/dL (31.6-35.5); Mean Corpuscular Hemoglobin 30.9 pg (28.0-33.3); Mean Corpuscular Volume 93.2 fL (83.0-100.0); Mean Platelet Volume 10.1 fL (9.4-12.4); Monocytes # 0.5 K/mcL (0.0-1.3); Monocytes % 9.5 %; Neutrophils # 3.7 K/mcL (1.6-8.9); Platelet Count 133 K/mcL (140-400); Red Blood Count 3.37 M/mcL (3.82-4.97); Red Cell Distribution Width 13.5 % (11.5-14.5); Segmented Neutrophils % 73.5 %
[2017-11-15 04:54] LABS: Alanine Aminotransferase 16 Units/L (0-55); Albumin 2.2 g/dL (3.5-5.0); Albumin/Globulin Ratio 0.6 (1.1-2.2); Alkaline Phosphatase 46 Units/L (38-126); Aspartate Amino Transferase 11 Units/L (5-34); BUN/Creatinine Ratio 26 (6-26); Bilirubin,Total 0.7 mg/dL (0.2-1.2); Blood Urea Nitrogen 18 mg/dL (7-20); Calcium 8.4 mg/dL (8.6-10.8); Carbon Dioxide 22 mEq/L (19-29); Chloride 111 mEq/L (98-109); Globulin 3.8 g/dL (2.4-3.5); Glucose 168 mg/dL (70-99); Osmolality,Calculated 298 (280-300); Potassium 3.7 mEq/L (3.5-4.5); Sodium 141 mEq/L (136-145); eGFR For African Americans > 60 (> 60); eGFR For Non-African Americans > 60 (> 60)
[2017-11-15 04:56] LABS: Albumin 2.2 g/dL (3.5-5.0); Albumin/Globulin Ratio 0.6 (1.1-2.2); Bilirubin,Direct 0.5 mg/dL (0.0-0.5); Bilirubin,Indirect 0.1 mg/dL (0.0-1.2); Bilirubin,Total 0.6 mg/dL (0.2-1.2); Globulin 3.7 g/dL (2.4-3.5); Total Protein 5.9 g/dL (6.0-8.3)
[2017-11-15] MEDS: *HR* Heparin 5,000 UNIT/ML VIAL SQ SCH (06:49)
[2017-11-15] MEDS: 0.9 % Sodium Chloride 1,000 ML IVC SCH (06:51)
[2017-11-15] MEDS: Insulin LISPRO 300 UNITS/3 ML VIAL SQ SCH ×2 (08:13→11:15)
[2017-11-15] MEDS: Lisinopril-HCTZ 20-12.5mg TABLET PO SCH (08:13)
--- NOTE | 2017-11-15 10:53 | General Surgery Progress Note ---
Date of Encounter: 11/15/17 Time of Encounter: 10:00 - Assessment and Plan (1) Abdominal pain Current Visit: Yes Status: Inactive - Most likely secondary to symptomatic cholelithiasis - Abdominal CT in emergency department showed evidence of cholelithiasis with pneumobilia in no apparent cholecystitis -Status post partial laparoscopic subtotal cholecystectomy postoperative day #4 - POD #1 following ERCP with common bile stent and biliary sphinctotomy with evidence of bile leak - Wound drain of 15 mL this morning, previously 100 - Repeat CT scan on 11/13/17 with common bile duct and pancreatic duct dilation Plan: S/p ERCP with stent for bile leak Tolerating diet well Monitor and supportive care. Will sign off at this time, stable to be discharged home. Should follow up with surgery, PCP, and GI for stent removal. Qualifiers: Abdominal location: right upper quadrant Qualified Code(s): R10.11 - Right upper quadrant pain (2) SIRS (systemic inflammatory response syndrome) Current Visit: Yes Status: Resolved Resolved. Afebrile and vital signs unremarkable Further management per primary team (3) Cholelithiasis Current Visit: Yes Status: Inactive As above for abdominal pain. POD #4 for partial laparoscopic cholecystectomy Qualifiers: Cholelithiasis location: gallbladder and bile duct Cholecystitis presence: without cholecystitis Biliary obstruction: without biliary obstruction Qualified Code(s): K80.70 - Calculus of gallbladder and bile duct without cholecystitis without obstruction (4) HTN (hypertension) Current Visit: Yes Status: Chronic Well-controlled, further management per primary team Qualifiers: Hypertension type: essential hypertension Qualified Code(s): I10 - Essential (primary) hypertension (5) HLD (hyperlipidemia) Current Visit: Yes Status: Chronic Qualifiers: Hyperlipidemia type: unspecified Qualified Code(s): E78.5 - Hyperlipidemia , unspecified (6) DVT prophylaxis Current Visit: Yes Status: Acute SCDs Subjective Patient reports: no new complaints, feels better, tolerating liquids well, tolerating a regular diet Narrative: Patient was seen and examined at bedside this morning. She states that overall she is feeling well with no complaints of nausea, vomiting, pain. She underwent an ERCP with biliary stent placement, biliary sphincterotomy yesterday. Evidence of bile leak found. She does report a bowel movement which was loose in nature, otherwise normal for her. Objective Vital Signs - Last 8 Hours Temp Pulse Resp BP Pulse Ox 12/16/17 07:57 97.8 F 73 18 149/107 96 11/15/17 04:40 97.4 F L 66 18 95/61 94 Intake and Output 11/14/17 11/15/17 11/15/17 23:59 07:59 15:59 Intake Total 1880 / 1880 1750 / 1750 Output Total 460 / 460 305 / 305 Balance 1420 / 1420 1445 / 1445 Intake: IV Fluids 1400 / 1400 1200 / 1200 0.9 % Sodium Chloride 1,000 ML 1000 / 1000 1000 / 1000 @ 100 mls/hr IVC .Q10H FRANCIA Rx#: [id number] Zosyn Premix 3.375 GM/200 ML 3. 400 / 400 200 / 200 375 gm In 200 ml @ 50 mls/hr IVPB Q8H FRANCIA Rx#:[id number] Oral 480 / 480 550 / 550 Output: Urine 450 / 450 300 / 300 Wound Drainage Right Abdomen Other: Meal Dinner Percent of Meal Consumed 50% Stool Size Moderate Stool Consistency loose Stool Color Brown # Bowel Movements 1 Weight 61.2 kg Blood Glucose* 334 122 Patient Weight 11/15/17 23:59 Weight 61.2 kg - General physical appearance well developed, well nourished, no distress, no pain - Respiratory normal expansion, normal respiratory effort, clear to auscultation - Cardiovascular Cardiovascular exam: Present: RRR, no murmurs/rubs/gallops - Abdomen Abdomen: Present: bowel sounds present, soft, tender (mild) Abdominal Tenderness: diffusely - Labs 11/15/17 03:48 11/15/17 03:48 Diabetes panel 11/15/17 11/15/17 Range/Units 03:48 03:48 Sodium 141 (136-145) mEq/L Potassium 3.7 (3.5-4.5) mEq/L Chloride 111 H (98-109) mEq/L Carbon Dioxide 22 (19-29) mEq/L BUN 18 (7-20) mg/dL Creatinine 0.70 (0.57-1.11) mg/dL Glucose 168 H (70-99) mg/dL Calcium 8.4 L (8.6-10.8) mg/dL AST 13 11 (5-34) Units/L ALT 16 16 (0-55) Units/L Alkaline Phosphatase 46 46 (38-126) Units/L Albumin 2.2 L 2.2 L (3.5-5.0) g/dL Calcium panel 11/15/17 11/15/17 Range/Units 03:48 03:48 Calcium 8.4 L (8.6-10.8) mg/dL Albumin 2.2 L 2.2 L (3.5-5.0) g/dL Pituitary panel 11/15/17 Range/Units 03:48 Sodium 141 (136-145) mEq/L Potassium 3.7 (3.5-4.5) mEq/L Chloride 111 H (98-109) mEq/L Carbon Dioxide 22 (19-29) mEq/L BUN 18 (7-20) mg/dL Creatinine 0.70 (0.57-1.11) mg/dL Glucose 168 H (70-99) mg/dL Calcium 8.4 L (8.6-10.8) mg/dL Adrenal panel 11/15/17 11/15/17 Range/Units 03:48 03:48 Sodium 141 (136-145) mEq/L Potassium 3.7 (3.5-4.5) mEq/L Chloride 111 H (98-109) mEq/L Carbon Dioxide 22 (19-29) mEq/L BUN 18 (7-20) mg/dL Creatinine 0.70 (0.57-1.11) mg/dL Glucose 168 H (70-99) mg/dL Calcium 8.4 L (8.6-10.8) mg/dL Total Bilirubin 0.6 0.7 (0.2-1.2) mg/dL AST 13 11 (5-34) Units/L ALT 16 16 (0-55) Units/L Alkaline Phosphatase 46 46 (38-126) Units/L Albumin 2.2 L 2.2 L (3.5-5.0) g/dL - VTE Documentation of Mechanical Device: Intermittent pneumatic compression device Consult Discharge Plan - Plan Additional Instructions: F/up with PCP in 1-2 weeks F/up with Surgery in 2 weeks Referrals: Ry Jay MD [Primary Care Provider] - Prescriptions: Amoxicillin/Clavulanate [Augmentin] 875 mg PO BIDWM #4 tablet
[2017-11-15 11:05] VITALS: BP 136/74
--- NOTE | 2017-11-15 14:00 | Discharge Summary ---
Date of Encounter: 11/15/17 Time of Encounter: 09:15 - Discharge Diagnosis (1) Cholelithiasis Priority: Primary Status: Acute Qualifiers: Cholelithiasis location: gallbladder Cholecystitis presence: without cholecystitis Biliary obstruction: without biliary obstruction Qualified Code(s): K80.20 - Calculus of gallbladder without cholecystitis without obstruction (2) Diabetes mellitus Priority: Secondary Status: Chronic Qualifiers: Diabetes mellitus type: type 2 Diabetes mellitus complication status: with unspecified complications Diabetes mellitus senior living insulin use: without cornice maker use Qualified Code(s): E11.8 - Type 2 diabetes mellitus with unspecified complications (3) HTN (hypertension) Priority: Secondary Status: Chronic Qualifiers: Hypertension type: essential hypertension Qualified Code(s): I10 - Essential (primary) hypertension (4) HLD (hyperlipidemia) Priority: Secondary Status: Chronic Qualifiers: Hyperlipidemia type: unspecified Qualified Code(s): E78.5 - Hyperlipidemia , unspecified (5) Tachycardia Priority: Primary Status: Resolved - Discharge Medications Prescriptions: Amoxicillin/Clavulanate [Augmentin] 875 mg PO BIDWM #4 tablet Home Medications: Glimepiride [Amaryl] 4 mg PO BID 11/10/17 [History] Insulin DETEMIR [Levemir Flextouch] 22 unit SQ QPM 11/10/17 [History] Lisinopril-HCTZ 20-12.5 [Prinzide 20-12.5] 1 tab PO DAILY 11/10/17 [History] Simvastatin [Zocor] 40 mg PO HS 11/10/17 [History] Sitagliptin Phos/Metformin HCl [Janumet 50-1,000 mg Tablet] 1 tab PO BID [History] Amoxicillin/Clavulanate [Augmentin] 875 mg PO BIDWM #4 tablet 11/15/17 [Rx] Allergies/Adverse Reactions: 3 Allergy/AdvReac Type Severity Reaction Status Date / Time No Known Allergies Allergy Verified 11/10/17 11:36 Procedures/tests Complete & Pending: Procedures Performed prior 72 hours Category Date Time Status CT abd pelvis w iv and oral [CT] Stat Cat Scan 11/13/17 11:30 Completed EKG [ECG 12 lead ECG] [ECG] Stat Y 11/13/17 09:07 Completed Date of admission: 11/10/17 02:51 Primary care physician: Ry Jay MD Consults: 11/10/17 02:56 Consult to Surgery [CONS] Routine Consulting Provider: Karel Peterson Surgical Reason for Consult: Dr Chauhan informed by ER, Acute Cholecystitis Time Notified: 02:56 Call Completed: Yes 11/13/17 10:46 Consult to Gastroenterology [CONS] Stat Consulting Provider: Gastroenterology Kristen Reason for Consult: possible bile leak Call Completed: Yes Discharging clinician: Kristyn Vaughn Anticipated date of discharge: 11/15/17 - Patient Status Disposition: Home, Self-Care Condition: Good Functional capacity at discharge: independent ambulation Overall status at discharge: patient is progressing back to baseline - Discharge Instructions Follow Up With: Ry Jay MD [Primary Care Provider] - Teresa Stein CNP [Advanced Practice Nurse] - 11/28/17 9:40 am Additional Instructions: F/up with PCP in 1-2 weeks F/up with Surgery in 2 weeks - Diet and Activity Activity: resume usual activities as tolerated Diet: diabetic diet, low fat, low cholesterol, low salt diet Hospital course: Ms. Olivo is a 72 year old female with the above medical problems who was initially admitted with abdominal pain. Initial CT abdomen with cholelithiasis and pneumobilia, no e/o- cholecystitis. She was started on supportive care with bowel rest, IV antibiotics, IV hydration, pain control and when necessary antiemetics. Surgery consulted, and patient underwent subtotal cholecystectomy. She developed recurrent abdominal pain along with worsening leukocytosis, diaphoresis, tachycardia and elevated bilirubin, in the immediate postoperative period. GI was consulted for Concern for bile leak. Patient underwent ERCP after which her symptoms and labs significantly improved. Patient currently tolerates oral diet and is doing well. She still has BISI drain in RUQ; discussed with surgery, patient is stable for discharge with outpatient surgery follow-up for removal of BISI drain. She is being discharged on oral antibiotics to complete a 7-day course. - Time Spent with Patient Total time spent providing and/or coordinating discharge services: Greater than 30 minutes (40 min) - Constitutional Vitals: Temp Pulse Resp BP Pulse Ox 98.2 F 81 16 136/74 94 11/15/17 11:04 11/15/17 11:04 11/15/17 11:04 11/15/17 11:04 11/15/17 11:04 General appearance: Present: A&O X 3, answers questions appropriately - Cardiovascular Cardiovascular exam: Present: RRR, +S1, +S2. Absent: diastolic murmur, gallop, rubs, systolic murmur - GI/Abdominal GI/Abdominal exam: Present: normal bowel sounds, soft (BISI drain in place in RUQ) , no peritoneal signs. Absent: distended, tenderness - VTE Documentation of Mechanical Device: Intermittent pneumatic compression device
[2017-11-15] MEDS ORDERED: FLUARIX QUAD 2017-18 36MOS UP/PF 0.5 ML SYRINGE IM ONE (14:18)
== END 2017-11-15 15:00 | disposition home or self-care (01) | DRG 418 ==
LOC: 3ANU → SUATTDRO 02:51
PROVIDERS: ADMIT Internal Medicine; ATTEND Internal Medicine